=== PATIENT | male | born 1965 | race Caucasian/White ===

== ENCOUNTER 2019-12-11 13:59 | Outpatient (REF) | payer MEDICAID, SELFPAY | END 2019-12-11 14:00 | disposition home or self-care (01) | LOC: HO.LAB 13:59 | PROVIDERS: PCP Internal Medicine; Visit Provider Internal Medicine | DX: Z20.828 Contact with and (suspected) exposure to other viral communicable diseases (principal) | CPT/HCPCS: 87635 ==

== ENCOUNTER → 2020-01-26 09:56 | Outpatient (BNVA) | payer SELFPAY | PROVIDERS: PCP Internal Medicine; Referring Provider Internal Medicine; Visit Provider Physician Assistant | DX: Z76.89 Persons encountering health services in other specified circumstances (principal) ==

== ENCOUNTER 2020-03-31 08:48 | Day surgery (SDC) | payer MEDICAID, SELFPAY ==
--- NOTE | 2020-03-30 08:54 | P.CONAN_ITS ---
Documented by User: Crissy Jung 03/30/20 08:55 HPI - Anesthesia Eval Consult details Narrative: 55yo M for Colonoscopy FOR[facility]LY [facility] Past Medical History Medical History Lab test negative for COVID-19 virus Family History Family History Father Esophageal cancer Mother Cardiac abnormality Social History Social History Household Members: Spouse Alcohol intake: current Smoking Status: Current every day smoker Tobacco Type: Cigarette Cigarettes Per Day: 10 Years Smoked: 25 Smoked in Last 30 Days: Yes Patient Given Instructions on How to Stop Smoking: No Second Hand Smoke Exposure: Yes Use of substances other than those prescribed or required for medical reasons: No Advance Directives: No Advance Directives Information Provided: No Current occupational status: employed Meds Allergies Allergy/AdvReac Type Severity Reaction Status Date / Time No Known Allergies Allergy Verified 03/31/20 09:29 [No Known Allergies*] Exam Exam Date and Time: March 30, 2020 0854 Assessment and Plan Assessment Anesthesia Assessment: Chart Reviewed Documented by User: Odalis lFoyd 03/31/20 10:10 [facility] Past Medical History Medical History Lab test negative for COVID-19 virus Family History Family History Father Esophageal cancer Mother Cardiac abnormality Social History Social History Household Members: Spouse Alcohol intake: current Smoking Status: Current every day smoker Tobacco Type: Cigarette Cigarettes Per Day: 10 Years Smoked: 25 Smoked in Last 30 Days: Yes Patient Given Instructions on How to Stop Smoking: No Second Hand Smoke Exposure: Yes Use of substances other than those prescribed or required for medical reasons: No Advance Directives: No Advance Directives Information Provided: No Current occupational status: employed Meds Allergies Allergy/AdvReac Type Severity Reaction Status Date / Time No Known Allergies Allergy Verified 03/31/20 09:29 [No Known Allergies*] Exam Airway Mallampati Class: II TM Dist: >3cm Neck ROM: Full Heart: RRR Lungs: CTA
[2020-03-31 09:29] VITALS: BP 120/69; PULSE 62; RESP 16; TEMP 36.2; O2SAT 96; BMI 28.3
[2020-03-31] MEDS: Lactated Ringers 1,000 ML 100 ML IVCONT (09:37)
--- NOTE | 2020-03-31 10:37 | MHC.SHP ---
Pre-Procedural Eval Section B Chief Complaint: screening Relevant Family History (Specify if Yes): No Relevant Social History: Tobacco Use Present Medications: None Medical History: No relevant PMH History of Previous Operations: No relevant previous surgery Allergies: Allergies Allergy/AdvReac Type Severity Reaction Status Date / Time No Known Allergies Allergy Verified 03/31/20 09:29 [No Known Allergies*] Review of Systems Sugical H&P ROS: Negative: Constitution, Cardiovascular, Respiratory, Neurological, Psychiatric, Hem-Onc, Allergic/Immunologic, Gastrointestinal, Genitourinary, Musculoskeletal, Integumentary, Endocrine and Eyes/Ears/Nose/Throat Exam Surgical H&P Exam: Normal: HEENT, Normal: Heart, Normal: Lungs, Normal: Extremities, Normal: Abdomen, Normal: Skin and Normal: Neurological Plan Diagnosis/Plan: Unchanged I have reviewed the history and physical and performed a pertinent physical examination on my patient. No changes have occurred unless specified.
--- NOTE | 2020-03-31 10:38 | P.OP_ITS ---
Operative Note Operative Note Date of Service: 03/31/20 Narrative: Operative Information Procedure Description: Colonoscopy COLONOSCOPY Instrument: Olympus variable stiffness pediatric scope 190L Colonoscopy Monitoring: Vital signs and clinical assessment, continuous EKG monitoring, Pulse oximetry, Carbon Dioxide monitoring and blood pressure monitoring were done throughout the procedure. Colon withdrawal time was 12 minutes. Procedure: The patient was placed in the left lateral decubitis position and pre-procedure medications were administered. After a digital rectal examination of the ano-rectum, the video colonoscope was inserted into the rectum and advanced through the colon to the cecum/TI. The colonoscope was slowly withdrawn in a retrograde panoramic fashion and the colon mucosa was carefully examined including a retroflexed view of the rectum. Findings and interventions are described below. Procedure Difficulty:easy Findings: Terminal Ileum-normal Cecum:normal Ascending Colon: 6-7 mm sessile polyp removed with forceps Transverse Colon -normal Descending Colon:normal Sigmoid Colon: x 3 sessile polyps about 10 mm each, x2 removed with cold snare and one with forceps, wide mouthed diverticulosis noted Rectum: Retroflexion with medium sized internal hemorrhoids, grade I Anorectum - normal Colon preparation: [place] Bowel Preparation Scale Right colon; 2 Transverse colon: 2 Left colon; 2 (0 = Unprepared colon segment with mucosa not seen due to solid stool that cannot be cleared. 1 = Portion of mucosa of the colon segment seen, but other areas of the colon segment not well seen due to staining, residual stool and/or opaque liquid. 2 = Minor amount of residual staining, small fragments of stool and/or opaque liquid, but mucosa of colon segment seen well. 3 = Entire mucosa of colon segment seen well with no residual staining, small fragments of stool or opaque liquid) Impression and Post Procedure Diagnosis: polyps internal hemorrhoids diverticular disease Plan: High fiber diet leaflet Avoid straining at stool, epsom salts and sitz bath, anusol supps or cream prn Repeat Colonoscopy in 3-5 years if adenomatous, 10 yr if hyperplastic or earlier if clinically indicated Above findings were reviewed with the patient and relevant handouts were provided if indicated.
--- NOTE | 2020-03-31 10:38 | PM.OP ---
Brief Operative Note Date of Service: 03/31/20 Pre-op diagnosis: colon screening Post-op diagnosis: same Procedure: see op note Surgeon: Richmond Sierra MD Anesthesia: MAC Estimated blood loss (mL): 0 Condition: stable Disposition: PACU
[2020-03-31 11:29] VITALS: BP 87/54; PULSE 67; RESP 16; TEMP 36.4; O2SAT 93
[2020-03-31 11:44] VITALS: BP 100/63; PULSE 63; RESP 18; TEMP 36.5; O2SAT 96
--- NOTE | 2020-03-31 12:47 | HO.POSTANES ---
Post Anesthesia Evaluation Post Anesthesia Evaluation Vital Signs: Vital Signs Temp Pulse Resp BP Pulse Ox 03/31/20 11:44 97.7 F 63 18 100/63 96 03/31/20 11:29 97.5 F 67 16 87/54 L 93 03/31/20 09:29 97.2 F 62 16 120/69 96 Anesthesia: Monitored Mental Status: Awake Pain Control: Satisfactory Nausea/Vomiting: None Hydration: Adequate Anesthesia-Related Issues: No Anes. Related Issues
== END 2020-03-31 12:17 | disposition home or self-care (01) ==
PROVIDERS: PCP Internal Medicine; Visit Provider Internal Medicine Gastroenterology
PROC: 0DJD8ZZ Inspection of Lower Intestinal Tract, Via Natural or Artificial Opening Endoscopic (ICD-10-PCS; CPT 45378; principal; 2020-03-31 10:30)
DX: Z12.11 Encounter for screening for malignant neoplasm of colon (principal); D12.2 Benign neoplasm of ascending colon; K63.5 Polyp of colon; K57.30 Diverticulosis of large intestine without perforation or abscess without bleeding; K64.0 First degree hemorrhoids; F17.210 Nicotine dependence, cigarettes, uncomplicated
CPT/HCPCS: 45385; 45380; 88305

== ENCOUNTER → 2020-04-07 10:34 | Outpatient (BNVA) | payer MEDICAID, SELFPAY | PROVIDERS: PCP Internal Medicine; Visit Provider Physician Assistant ==

== ENCOUNTER 2020-04-18 12:18 | Outpatient (REF) | payer MEDICAID, SELFPAY | END 2020-04-18 12:19 | disposition home or self-care (01) | LOC: HO.LAB 12:18 | PROVIDERS: PCP Internal Medicine; Visit Provider Internal Medicine | DX: Z20.822 Contact with and (suspected) exposure to COVID-19 (principal) | CPT/HCPCS: 36415; C9803; U0003; U0005 ==

== ENCOUNTER 2020-08-15 09:44 | Outpatient (REF) | payer MEDICAID, SELFPAY | END 2020-08-15 09:45 | disposition home or self-care (01) | LOC: HO.LAB 09:44 | PROVIDERS: PCP Internal Medicine; Visit Provider Internal Medicine | DX: Z20.822 Contact with and (suspected) exposure to COVID-19 (principal) | CPT/HCPCS: C9803; U0003; U0005 ==

== ENCOUNTER 2021-02-17 07:28 | Outpatient (REF) | payer MEDICAID, SELFPAY ==
--- NOTE | ~2021-02-17 | XR_ITS ---
EXAMINATION: XR LUMBOSACRAL SPINE CLINICAL INFORMATION: Low back pain COMPARISON: None TECHNIQUE: Three views of the lumbosacral spine. FINDINGS: No acute visible fracture or dislocation. Mild multilevel degenerative changes with disc space narrowing, osteophyte formation, and facet arthropathy. Vertebral body heights and disc spaces are otherwise maintained. Posterior elements are intact. Paraspinal soft tissues are unremarkable. Visualized bowel gas is unremarkable. XR/XR lumbar spine 2-3V IMPRESSION: 1. No acute visible fracture or dislocation. 2. Mild multilevel degenerative changes.
== END 2021-02-17 07:29 | disposition home or self-care (01) ==
LOC: HO.XRAY 07:28
PROVIDERS: PCP Internal Medicine; Visit Provider Internal Medicine
DX: M54.50 Low back pain, unspecified (principal)
CPT/HCPCS: 72100

== ENCOUNTER → 2021-09-08 09:31 | Outpatient (BNVA) | payer MEDICAID, SELFPAY | PROVIDERS: PCP Internal Medicine; Referring Provider Internal Medicine; Visit Provider Internal Medicine Cardiovascular Disease | DX: R01.1 Cardiac murmur, unspecified (principal); R07.89 Other chest pain | CPT/HCPCS: 93005; 99202 ==

== ENCOUNTER → 2021-09-21 07:31 | Outpatient (REF) | payer MEDICAID, SELFPAY ==
--- NOTE | 2021-09-21 07:35 | CA_ITS ---
Transthoracic Echocardiogram Patient (Last, First, Middle): Eugenio Franco, Gender: Male Date of : 1965 Age: 56 Procedure Date: 09/21/2021 Procedure Type: Transthoracic Echocardiogram Location: OP Height: 165.1 cm Weight: 78.02 kg BSA: 1.86 m2 Heart Rate: bpm BP: 115 / 70 mmHg Graphics Coordinator: ELIZABETH Referring MD: Avinash Adams MD Electrician Control Equipment: Avinash Adams MD Symptoms: R01.1 - Cardiac murmur, unspecified Study Quality: Adequate ECG Rhythm: Sinus Conclusions: - 1. Normal LV systolic function grade 1 diastolic dysfunction 2.Calcified aortic valve changes with mild aortic regurgitation and increased gradient suggestive of early aortic stenosis 3. Normal RV systolic pressure 4. No pericardial effusion Findings Left Ventricle Normal left ventricular size, thickness, and systolic function. The visually estimated ejection fraction is between 60-65%. Spectral Doppler is indicative of an impaired relaxation filling pattern. E/E prime ratio is <8, consistent with normal filling pressures. Evidence suggests grade I (mild) diastolic dysfunction. Right Ventricle Normal right ventricular cavity size and systolic function. Atria Both atria are normal in size. There is lipomatous hypertrophy of the interatrial septum. Interatrial shunt cannot be excluded. Aortic Valve There is mild calcification of the aortic valve. There is mild aortic valve regurgitation. Mildly increased gradient across aortic valve suggestive of early aortic stenosis Mitral Valve Likely normal mitral valve structure and function. There is trace mitral valve regurgitation. There is no mitral valve stenosis. Pulmonic Valve The pulmonic valve is likely normal. Tricuspid Valve Normal tricuspid valve structure. There is mild tricuspid valve regurgitation. The right ventricular systolic pressure is normal. The right ventricular systolic pressure is 25 mmHg. Normal right atrial pressure. There is no evidence of pulmonary hypertension. Great Vessels All visible segments of the aorta are normal in size. The pulmonary artery was not well visualized. Venous The inferior vena cava is normal in size and collapses greater than 50% with inspiration. Pericardium/Pleural There is no evidence of pericardial effusion. Prior Study Comparison No prior study available for comparison. Measurements 2D Linear Measurements IVSd: 0.98 0.6-0.9/0.6-1.0 cm LVIDd: 4.31 3.9-5.3/4.2-5.9 cm LVIDd Index: 2.32 2.4-3.2/2.2-3.1 cm/m2 LVIDs: 3.03 2.0-3.6 cm LVPWd: 0.96 0.7-1.1 cm LA Diam: 3.20 2.7-3.8/3.0-4.0 cm LAIDs Index: 1.72 1.5-2.3 cm/m2 LV Mass: 170.88 67-162/88-224 g LV Mass Index: 91.87 43-95/49-115 g/m2 LVOT Diam: 2.00 3.0+(-)1.3 cm 2D Systolic Function EF 4C: 57.70 >55% EF 2C: 60.10 >55% Mitral Valve MV Pk E: 0.79 MV PK A: 0.73 MV Decel Time: 255.00 E/A: 1.10 E'Lateral: 11.50 E'Medial: 6.85 E/E' Med: 11.50 E/E' Lat: 6.90 PHT: 75.00 MVA PHT: 2.93 Decel Mora: 3.09 Aortic Valve AoV Pk Corby: 1.90 AoV Mn Corby: 1.30 AoV VTI: 0.45 AoV Pk Grad: 14.00 Aov Mn Grad: 8.00 FERNANDA Cont.VTI: 2.22 AI Pk Corby: 4.03 AI Mora: 1.83 LVOT LVOT Pk Corby: 1.38 LVOT Mn Corby: 0.85 LVOT VTI: 0.32 LVOT Pk Grad: 8.00 LVOT Mn Grad: 3.00 LVOT Diam: 2.00 LVOT Area: 3.14 Diastolic Function MV Pk E: 0.79 MV Pk A: 0.73 E/A: 1.10 E'Medial: 6.85 E/E' Med: 11.50 E' Laterial: 11.50 E/E' Lat: 6.90 Right Ventricle TAPSE (mm): 22.60 TVS' Corby: 9.03 Tricuspid Valve TR Pk Corby: 2.35 TR Pk Grad: 22.00 RA Press: 3.00 RVSP: 25.00 Great Vessels Aorta Sinus of Valsalva: 3.05 2.0-3.[address] [place]: 2.62 1.7-3.4 cm Ao Asc: 2.90 2.1-3.4 cm Updated in Other Vendor System with Status of Final Avinash Adams MD electronically signed on 09/21/2021 12:22:23 PM with status of Final
--- NOTE | 2021-09-21 07:35 | CA_ITS ---
Acquisition Time: 2021-09-21 08:58:41 Total Exercise Time: 00:09:14 Test Indications: CP Medications: SEE CHART Protocol: ROSEY Max HR: 160 BPM 98% of Pred: 162 BPM Max BP: 174/080 mmHG Max Work Load: 10.4 METS Exercise stress test with exercise 9 min 14 sec of Rosey protocol, without anginal symptoms, with one ventricular cuplet during exercise, with normotensive responose to exercise, with EKG changes meeting criteria for ischemia: downsloping ST depression lead III, khorizontal aVF, V6 then in recovery with downsloping ST segements leads III, aVF, V5, V6 with gradual improvement. Test reviewed with Dr Luz. Will order a stress echo for further evaluation. Referred By: Avinash Adams Overread By: JAVIER KIDD
== END ==
LOC: HO.CARD 07:31
PROVIDERS: Visit Provider Internal Medicine Cardiovascular Disease
DX: R01.1 Cardiac murmur, unspecified (principal); R07.89 Other chest pain
CPT/HCPCS: 93017; 93306

== ENCOUNTER → 2021-09-28 11:00 | Outpatient (REF) | payer MEDICAID, SELFPAY ==
--- NOTE | 2021-09-28 11:03 | CA_ITS ---
Acquisition Time: 2021-09-28 11:21:01 Total Exercise Time: 00:09:15 Test Indications: Abnormal Treadmill Test Medications: NONE Protocol: ROSEY Max HR: 162 BPM 100% of Pred: 162 BPM Max BP: 138/080 mmHG Max Work Load: 10.5 METS Exercise stress test with exercise 9 min 15 sec of Rosey protocol, achieving 100% MPHR, withut anginal symptoms, with isolated PVCs and one ventricular triplet in stage 3, with normotensive response to exercise, without EKG changes meeting criteria for ischemia, with downsloping ST lead III only. Echo images obtained by [facility] at rest and immediately post peak exercise. Definity contrast used. Test reviewed with Dr Rand. Referred By: Cordelia Franco Overread By: CORDELIA FRANCO
== END ==
LOC: HO.CARD 11:00
PROVIDERS: Visit Provider Internal Medicine
DX: R94.39 Abnormal result of other cardiovascular function study (principal)
CPT/HCPCS: 93350; Q9957

== ENCOUNTER → 2021-11-09 09:59 | Outpatient (BNVA) | payer MEDICAID, SELFPAY | PROVIDERS: PCP Internal Medicine; Referring Provider Internal Medicine; Visit Provider Internal Medicine Cardiovascular Disease | DX: I25.10 Atherosclerotic heart disease of native coronary artery without angina pectoris (principal); I35.0 Nonrheumatic aortic (valve) stenosis | CPT/HCPCS: 99212 ==

== ENCOUNTER 2022-05-06 10:40 | Emergency (ER) | payer MEDICAID, SELFPAY ==
[2022-05-06 10:44] VITALS: BP 142/79; PULSE 74; RESP 18; TEMP 36.6; O2SAT 98; BMI 29.5
[2022-05-06 11:41] LABS: Influenza A PCR NEGATIVE (Negative); Influenza B PCR NEGATIVE (Negative); Resp Syncy Virus RNA Qual PCR NEGATIVE (Negative); SARS COV2 PCR INHOUSE POSITIVE (Negative)
--- NOTE | 2022-05-06 12:17 | ED_ITS ---
HPI - General Adult General Chief complaint: General Medical <Tammy Palma NP - Last Filed: 05/06/22 12:17> Stated complaint: headache, covid symptoms <Tammy Palma NP - Last Filed: 05/06/22 12:17> Time Seen by Provider: 05/06/22 12:30 <Tammy Palma NP - Last Filed: 05/06/22 12:17> Source: patient <Ayanna Mackey MD - Last Filed: 05/06/22 13:28> Mode of arrival: ambulatory <Ayanna Mackey MD - Last Filed: 05/06/22 13:28> Limitations: no limitations <Ayanna Mackey MD - Last Filed: 05/06/22 13:28> History of Present Illness HPI narrative: 57-year-old male came in for evaluation of headache. Patient was contacted with sick contact now is feeling headache but no sore throat, no sneezing, no coughing patient is here to check for his COVID status after his recent exposure to a sick contact. <Ayanna Mackey MD - Last Filed: 05/06/22 13:28> Related Data Home medications: Previous Rx's Medication Instructions Recorded aspirin 81 mg tablet,delayed 81 mg PO DAILY #90 tabs 11/09/21 release (Ecotrin Low Strength) <Tammy Palma NP - Last Filed: 05/06/22 12:17> Allergies/adverse reactions: Allergies Allergy/AdvReac Type Severity Reaction Status Date / Time No Known Allergies Allergy Verified 04/07/20 10:34 [No Known Allergies*] <Tammy Palma NP - Last Filed: 05/06/22 12:17> Review of Systems Review of Systems: All other systems are reviewed and are negative Constitutional: Reports as per HPI and Reports no additional constitutional complaints Eyes: Reports as per HPI and Reports no additional eye complaints Reports system reviewed and no additional complaints, except as documented Cardiovascular: Reports as per HPI and Reports no additional cardiovascular complaints Respiratory: Reports as per HPI and Reports no additional respiratory complaints Gastrointestinal: Reports as per HPI and Reports no additional gastrointestinal complaints Genitourinary: Reports no additional female genitourinary complaints Musculoskeletal: Reports no additional musculoskeletal complaints Skin/Breast: Reports system reviewed and no additional complaints, except as docu Psychiatric: Reports no additional psychiatric complaints Endocrine: Reports no additional endocrine complaints Hematologic/Lymphatic: Reports no additional hematologic/lymphatic complaints Allergic/Immunologic: Reports no additional allergic/immunologic complaints Reports system reviewed and no additional complaints, except as documented and Reports Abnormal speech present <Ayanna Mackey MD - Last Filed: 05/06/22 13:28> [facility] Past Medical History Medical History: Medical History Lab test negative for COVID-19 virus <Tammy Palma NP - Last Filed: 05/06/22 12:17> Surgical History: Surgical History H/O colonoscopy <Tammy Palma NP - Last Filed: 05/06/22 12:17> Family History Family History: Family History Father Esophageal cancer Mother Cardiac abnormality <Tammy Palma NP - Last Filed: 05/06/22 12:17> Social History Social History: Social History Household Members: Spouse Alcohol intake: current Alcohol intake frequency: a few times a month Alcohol type: beer Patient Tobacco Use Status: Former Tobacco user Quit Date: 2020 Cigarettes Per Day: 10 Years Smoked: 25 +/- Advance Directives: No Advance Directives Information Provided: No Current occupational status: employed <Tammy Palma NP - Last Filed: 05/06/22 12:17> Physical Exam ED Vital Signs: Vital Signs - 24 hr 05/06/22 10:44 Temperature 98 F Pulse Rate 74 Respiratory Rate 18 Blood Pressure 142/79 H Pulse Oximetry 98 Oxygen Delivery Method Room Air BMI result Body Mass Index 29.5 <Tammy Palma NP - Last Filed: 05/06/22 12:17> Vital Signs - 24 hr 05/06/22 10:44 Temperature 98 F Pulse Rate 74 Respiratory Rate 18 Blood Pressure 142/79 H Pulse Oximetry 98 Oxygen Delivery Method Room Air BMI result Body Mass Index 29.5 Vital signs have been reviewed as appeared to be correct. Blood pressure normal. Heart rate normal. Respiration rate normal. Temperature normal. Oxygen saturation normal. <Ayanna Mackey MD - Last Filed: 05/06/22 13:28> Appearance: Alert. Oriented X3. No acute distress. Head: Normal external exam. Normocephalic. Atraumatic. No Gómez signs noted. No raccoon eyes noted Eyes: PERRLA. EOMI. Conjunctiva and sclera normal. Eyelids normal. ENT: TM's Normal. Pharynx normal. Uvula midline. Moist mucous membranes. No trismus noted. No drooling noted. No muffled voice noted. Neck: Normal inspection. Neck supple. FROM. No adenopathy. Thyroid Normal. No meningeal signs. No neck mass noted. CVS: Normal heart rate and rhythm. Heart sound normal. No murmurs noted. Pulses normal throughout. Respiratory: No respiratory distress. Painless inspiration. Breath sounds normal. No wheezes/rales/rhonchi noted. Chest nontender. No accessory muscle usage noted or decreased air movement noted. Abdomen: Soft and nontender. Bowel sounds normal in all 4 quadrants. No distention noted. No organomegaly noted. No visible injury noted. Back: No CVA tenderness. Full range of motion noted. Skin: Skin warm and dry. Normal skin color. Normal skin turgor. No rashes/lesions/lacerations noted. Extremities: No lower extremity edema. Extremities exhibit normal range of motion. Extremities nontender. Neuro: Oriented X 3. Cranial nerve exam: II-XII are grossly intact No motor deficit. No sensory deficit. Reflexes normal. <Ayanna Mackey MD - Last Filed: 05/06/22 13:28> Course Course Course Narrative: This is a rapid medical exam. 57 yo male exposed to COVID yesterday. Now with cough. No other symptoms. Will send covid testing. VSS <Tammy Palma NP - Last Filed: 05/06/22 12:17> Medical Decision Making Differential Diagnosis Differential Diagnoses: The differential diagnosis associated with the presentation includes (COVID infection, influenza infection, sinus infection.) <Ayanna Mackey MD - Last Filed: 05/06/22 13:28> Lab Data MDM Lab Attestation statement: I reviewed the patient's lab results. <Ayanna Mackey MD - Last Filed: 05/06/22 13:28> Labs: Lab Results 05/06/22 Range/Units 11:01 Influenza Type A (PCR) NEGATIVE (Negative) Influenza Type B (PCR) NEGATIVE (Negative) RSV RNA Qual (PCR) NEGATIVE (Negative) SARS-CoV-2 RNA (RT-PCR) POSITIVE A (Negative) <Tammy Palma NP - Last Filed: 05/06/22 12:17> Lab Results 05/06/22 Range/Units 11:01 Influenza Type A (PCR) NEGATIVE (Negative) Influenza Type B (PCR) NEGATIVE (Negative) RSV RNA Qual (PCR) NEGATIVE (Negative) SARS-CoV-2 RNA (RT-PCR) POSITIVE A (Negative) <Ayanna Mackey MD - Last Filed: 05/06/22 13:28> Discharge Plan Discharge Clinical Impression: COVID-19 virus infection <Tammy Palma NP - Last Filed: 05/06/22 12:17> Patient Disposition: Home, Self-Care <Tammy Palma NP - Last Filed: 05/06/22 12:17> Instructions: Covid-19 Viral Syndrome and Novel Coronavirus (ED) Hey/Ath <Tammy Palma NP - Last Filed: 05/06/22 12:17> Additional Instructions: Self-quarantine for 7 days, frequent hand washing, where face mask at all times, keep social distancing. <Tammy Palma NP - Last Filed: 05/06/22 12:17> Prescriptions: No Action aspirin [Ecotrin Low Strength] 81 mg tablet,delayed release (DR/EC) 81 mg PO DAILY Qty: 90 3RF <Tammy Palma NP - Last Filed: 05/06/22 12:17> Referrals: Clem White MD [Primary Care Provider] - <Tammy Palma NP - Last Filed: 05/06/22 12:17>
[2022-05-06 13:35] VITALS: BP 128/79; PULSE 67; RESP 16; O2SAT 97
== END 2022-05-06 13:38 | disposition home or self-care (01) ==
PROVIDERS: Emergency Provider Emergency Medicine; PCP Internal Medicine
DX: U07.1 COVID-19 (principal); R51.9 Headache, unspecified; R05.9 Cough, unspecified; Z87.891 Personal history of nicotine dependence
CPT/HCPCS: 0241U; 99283

== ENCOUNTER → 2022-05-09 09:01 | Outpatient (BNVA) | payer MEDICAID, SELFPAY | PROVIDERS: PCP Internal Medicine; Visit Provider Orthopaedic Surgery | DX: Z13.89 Encounter for screening for other disorder (principal) ==

== ENCOUNTER 2022-05-11 09:53 | Outpatient (REF) | payer MEDICAID, SELFPAY ==
[2022-05-11 10:35] LABS: COVID-19 Test Negative (Negative); IDNOW Serial# BCCEAD1C
== END 2022-05-11 09:54 | disposition home or self-care (01) ==
LOC: HO.LAB 09:53
PROVIDERS: Visit Provider Internal Medicine
DX: Z20.822 Contact with and (suspected) exposure to COVID-19 (principal)
CPT/HCPCS: 87635; C9803

== ENCOUNTER → 2022-06-06 08:38 | Outpatient (BNVA) | payer MEDICAID, SELFPAY | PROVIDERS: PCP Internal Medicine; Visit Provider Orthopaedic Surgery | DX: M25.641 Stiffness of right hand, not elsewhere classified (principal); R20.0 Anesthesia of skin | CPT/HCPCS: 99202 ==

== ENCOUNTER → 2022-11-23 07:52 | Outpatient (REF) | payer MEDICAID, SELFPAY ==
--- NOTE | 2022-11-23 07:54 | CA_ITS ---
Transthoracic Echocardiogram Patient (Last, First, Middle): Eugenio rFanco, Gender: Male Date of : 1965 Age: 57 Procedure Date: 11/23/2022 Procedure Type: Transthoracic Echocardiogram Location: OP Height: 165.1 cm Weight: 77.11 kg BSA: 1.85 m2 Heart Rate: 70 bpm BP: 120 / 70 mmHg Yard Stocker: LENO Referring MD: Avinash Adams MD Symptoms: I35.0 - Nonrheumatic aortic (valve) stenosis Study Quality: Adequate ECG Rhythm: Sinus Conclusions: - Normal left ventricular size, thickness, systolic function, and wall motion. The visually estimated ejection fraction is between 55-60%. - E/E prime ratio is between 8 and 15 consistent with indeterminate filling pressures. - There is mild aortic valve regurgitation. - Mildly elevated gradient across aortic valve due to aortic insufficiency- 2D imaging of the valve is normal. Findings Left Ventricle Normal left ventricular size, thickness, systolic function, and wall motion. The visually estimated ejection fraction is between 55-60%. Abnormal diastolic function is noted. Spectral Doppler is indicative of an impaired relaxation filling pattern. E/E prime ratio is between 8 and 15 consistent with indeterminate filling pressures. Right Ventricle Normal right ventricular cavity size and systolic function. Atria The left atrium is normal in size. The right atrium is normal in size. Aortic Valve There is a normal trileaflet aortic valve. There is mild aortic valve regurgitation. Mildly elevated gradient across aortic valve due to aortic insufficiency- 2D imaging of the valve is normal. Mitral Valve Normal mitral valve structure and function. There is no mitral valve regurgitation. There is no mitral valve stenosis. Pulmonic Valve Normal pulmonic valve structure and function. There is trace pulmonic valve regurgitation. Tricuspid Valve Normal tricuspid valve structure and function. There is no tricuspid valve regurgitation. Normal right atrial pressure. There is no evidence of pulmonary hypertension. Great Vessels All visible segments of the aorta are normal in size. Venous The inferior vena cava is normal in size and collapses greater than 50% with inspiration. Pericardium/Pleural There is no evidence of pericardial effusion. Prior Study Comparison No significant change compared to prior study dated: 09/21/2021. Measurements 2D Linear Measurements IVSd: 1.00 0.6-0.9/0.6-1.0 cm LVIDd: 4.80 3.9-5.3/4.2-5.9 cm LVIDd Index: 2.59 2.4-3.2/2.2-3.1 cm/m2 LVIDs: 3.40 2.0-3.6 cm LVPWd: 0.80 0.7-1.1 cm Ao Root: 2.90 2.1-3.5 cm LA Diam: 3.60 2.7-3.8/3.0-4.0 cm LAIDs Index: 1.95 1.5-2.3 cm/m2 LV Mass: 183.98 67-162/88-224 g LV Mass Index: 99.45 43-95/49-115 g/m2 LVOT Diam: 2.00 3.0+(-)1.3 cm 2D Systolic Function EF 2C: 62.50 >55% Mitral Valve MV Pk E: 0.58 MV PK A: 0.57 MV Decel Time: 194.00 E/A: 1.00 E'Lateral: 7.29 E'Medial: 5.22 E/E' Med: 11.10 E/E' Lat: 7.90 PHT: 57.00 MVA PHT: 3.86 Decel [place]: 2.98 Aortic Valve AoV Pk Corby: 2.12 AoV Mn Corby: 1.49 AoV VTI: 0.44 AoV Pk Grad: 18.00 Aov Mn Grad: 10.00 FERNANDA Cont.VTI: 1.82 AI Pk Corby: 4.11 AI [place]: 1.85 LVOT LVOT Pk Corby: 1.34 LVOT Mn Corby: 0.91 LVOT VTI: 0.26 LVOT Pk Grad: 7.00 LVOT Mn Grad: 4.00 LVOT Diam: 2.00 LVOT Area: 3.14 Diastolic Function MV Pk E: 0.58 MV Pk A: 0.57 E/A: 1.00 E'Medial: 5.22 E/E' Med: 11.10 E' Laterial: 7.29 E/E' Lat: 7.90 Right Ventricle TAPSE (mm): 15.50 TVS' Corby: 9.79 Tricuspid Valve TR Pk Corby: 1.97 TR Pk Grad: 16.00 RA Press: 8.00 RVSP: 24.00 Great Vessels Aorta Ao Root-2D: 2.90 2.0-3.7 cm Sinus of Valsalva: 2.90 2.0-3.5 cm Ao Asc: 3.10 2.1-3.4 cm Pulmonary Veins Pulm Vein S/D 1.10 Pulmonary Valve PV Pk Corby: 0.89 Peak PV Grad: 3.00 Updated in Other Vendor System with Status of Final Vikram Luz MD electronically signed on 11/26/2022 9:06:35 AM with status of Final
== END ==
LOC: HO.CARD 07:52
PROVIDERS: PCP Internal Medicine; Visit Provider Internal Medicine Cardiovascular Disease
DX: I35.0 Nonrheumatic aortic (valve) stenosis (principal)
CPT/HCPCS: 93306

== ENCOUNTER → 2022-11-23 07:54 | Outpatient (BNV) | payer MEDICAID, SELFPAY | PROVIDERS: PCP Internal Medicine; Visit Provider Internal Medicine Cardiovascular Disease | DX: I35.1 Nonrheumatic aortic (valve) insufficiency (principal) | CPT/HCPCS: 93306 ==

== ENCOUNTER 2022-11-27 14:57 | Outpatient (AMB) | payer MEDICAID, SELFPAY ==
--- NOTE | 2022-11-27 15:04 | A.OFFVIS_ITS ---
Intake Vital Signs 11/27/22 15:05 Height 5 ft 4 in Weight 178 lb 9.191 oz BMI 30.6 BP 124/70 Blood Pressure Location Lt brachial Position Sitting Pulse 80 Intake Visit Reasons: 1 year follow up Intake Note: 1 year follow-up with ekg feeling good Referral And Information Aide Required: Yes Referral And Information Aide Name: ben garcia Allergies No Known Allergies [No Known Allergies*] Allergy (Verified 06/06/22 09:05) Medication List - Last Reconciled 11/27/22 by Avinash Adams MD diclofenac potassium 50 mg PO TID PRN HPI HPI Comments History of Present Illness Details Eugenio comes for follow-up. History was obtained with help of a certified retail field supervisor. Patient denies any clear cardiac symptoms. Remains very active. Recent echocardiogram shows increased gradient across aortic valve which would suggest mild early aortic stenosis with mild aortic regurgitation. He has no cardiac symptoms. 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 Review of Systems Const Denies chills, Denies fatigue, Denies fever(s), Denies frequent falls, Denies weakness, Denies weight gain and Denies weight loss ENT Denies dizziness Card Denies chest pain, Denies leg edema, Denies lightheadedness, Denies palpitations, Denies dyspnea, Denies dyspnea on exertion, Denies orthopnea and Denies other (loss of consciousness) Resp Denies cough, Denies dyspnea and Denies dyspnea on exertion GI Denies hematochezia and Denies change in stool character Musc Denies abnormal gait, Denies muscle weakness, Denies numbness, Denies radiating pain into limb and Denies tingling Neuro Denies Abnormal speech present, Denies abnormal gait, Denies dizziness, Denies frequent falls, Denies numbness, Denies tingling and Denies weakness Endo Denies fatigue and Denies palpitations Physical Exam Vital Signs: Last Vital Signs Pulse 80 11/27/22 15:05 BP 124/70 11/27/22 15:05 BMI result Body Mass Index 30.6 Const General: cooperative, comfortable, no acute distress, alert and awake Nutritional Appearance: overweight Orientation/consciousness: patient oriented x3 Limitations: no limitations Neck Neck: Yes trachea midline, Yes supple and Yes no JVD Carotids: normal carotid upstroke Resp Effort & Inspection: normal respiratory effort Auscultation: clear to auscultation bilaterally Cardio Jugular venous distension: no JVD Palpation: normal PMI Rate: regular rate Rhythm: regular rhythm Heart sounds: S1 normal heart sound present, S2 normal heart sound present, no click, no gallops, Murmur heart sound present systolic early, decrescendo, crescendo and with radiation to the carotids and no rubs GI Auscultation: normal bowel sounds Neuro General: patient oriented x3 and no focal motor deficits Speech: No Abnormal speech present Extrem General: Yes no clubbing, cyanosis or edema Office Procedures EKG Details: EKG shows normal sinus rhythm with isolated Q-wave in lead 3 most likely due to body habitus. [id number], Complete Assessment & Plan Assessment & Plan (1) Aortic stenosis: Code(s): I35.0 - Nonrheumatic aortic (valve) stenosis Plan: Mild early aortic stenosis. Also present mild aortic regurgitation consistent him and causing systolic murmur. No interventions required. This was explained to him with help of hose finisher. Advise low-dose aspirin therapy. Follow-up echocardiogram every 2 years. Will follow up in clinic in 2 years time, sooner p.r.n.. Thank you for me to partake in his care Coding Level of Care Code Est Pt Level 3 (75046) Diagnoses Aortic stenosis I35.0 CPT Codes EKG - CPT: 03238-[id number], Complete ([id number])
[2022-11-27 15:05] VITALS: BP 124/70; PULSE 80; BMI 30.6
== END 2022-11-27 16:07 | disposition home or self-care (01) ==
PROVIDERS: PCP Internal Medicine; Visit Provider Internal Medicine Cardiovascular Disease
DX: I35.0 Nonrheumatic aortic (valve) stenosis (principal)
CPT/HCPCS: 93010; 99213

== ENCOUNTER → 2022-11-27 14:57 | Outpatient (BNVA) | payer MEDICAID, SELFPAY | PROVIDERS: PCP Internal Medicine; Visit Provider Internal Medicine Cardiovascular Disease | DX: I35.0 Nonrheumatic aortic (valve) stenosis (principal) | CPT/HCPCS: 93005; 99212 ==

== ENCOUNTER 2023-11-01 08:53 | Outpatient (REF) | payer MEDICAID, SELFPAY ==
[2023-11-07 20:09] LABS: Testosterone, Free 92.9 pg/mL (35.0-155.0); Testosterone, Total 673 ng/dL (250-1100)
== END 2023-11-01 08:54 | disposition home or self-care (01) ==
LOC: HO.CHCLDS 08:53
PROVIDERS: Visit Provider Internal Medicine
DX: R68.82 Decreased libido (principal)
CPT/HCPCS: 36415; 84402; 84403

== ENCOUNTER 2024-01-03 06:55 | Outpatient (REF) | payer MEDICAID, SELFPAY ==
[2024-01-03 07:03] LABS: MANUAL DIFF FLAG NO
[2024-01-03 07:17] LABS: Basophils Absolute Auto 0.1 X10*3/uL (0.0-0.2); Basophils Percent Auto 0.6 % (0-2); Eosinophils Absolute Auto 0.1 X10*3/uL (0.0-0.4); Eosinophils Percent Auto 1.7 % (0-4); Hematocrit 44.8 % (42.0-52.0); Hemoglobin 15.2 g/dl (14.0-18.0); Imm Gran Abs Auto 0.06 X10*3/uL (0.00-0.03); Imm Gran Pct Auto 0.7 % (0.0-0.4); Lymphocytes Absolute Auto 2.3 X10*3/uL (1.2-4.9); Lymphocytes Percent Auto 27.4 % (20-40); Mean Corpuscular HGB Conc 33.9 g/dl (31.0-36.0); Mean Corpuscular Hemoglobin 29.6 pg (27.0-33.0); Mean Corpuscular Volume 87.3 fL (80.0-98.0); Mean Platelet Volume 9.9 fL (9.4-12.4); Monocytes Absolute Auto 0.8 X10*3/uL (0.1-1.2); Monocytes Percent Auto 9.9 % (2-11); Neutrophils Percent Auto 59.7 % (45-73); Platelet Count 179 X10*3/uL (160-400); Red Blood Count 5.13 X10*6/uL (4.60-5.80); Red Cell Distribution Width 12.7 % (11.0-16.0); White Blood Count 8.3 X10*3/uL (4.8-10.8)
[2024-01-03 07:24] LABS: Estimated Average Glucose 108 mg/dL; Hemoglobin A1C 142.8747 umol/L; Hemoglobin A1c % 5.4 % (<6.0); Total Hemoglobin (HGBA1C) 3966.6443 umol/L
[2024-01-03 07:52] LABS: Alanine Aminotransferase 33 U/L (0-40); Albumin Level 4.2 g/dL (3.5-5.0); Anion Gap 11 (12-20); Aspartate Amino Transferase 28 U/L (5-37); Bilirubin Total 0.4 mg/dL (0.0-1.0); Blood Urea Nitrogen 24 mg/dL (9-16); Calcium 9.1 mg/dL (8.4-10.2); Carbon Dioxide 27 mmol/L (22-29); Chloride 107 mmol/L (96-108); Cholesterol 137 mg/dL (<200); Estimated Glomerular Filt Rate > 60; Glucose Random 90 mg/dL (60-115); HDL Cholesterol 32 mg/dL (>40); LDL Cholesterol Calculated 87 mg/dL (<100); Potassium 4.2 mmol/L (3.3-5.1); Sodium 141 mmol/L (135-145); Total Protein 7.1 g/dL (6.5-8.0); Triglycerides 90 mg/dL (<150)
[2024-01-03 08:05] LABS: Alkaline Phosphatase 68 U/L (39-117)
[2024-01-03 08:14] LABS: TSH reflex Free T4 1.28 uIU/mL (0.32-4.0)
== END 2024-01-03 06:56 | disposition home or self-care (01) ==
LOC: HO.LAB 06:55
PROVIDERS: PCP Internal Medicine; Visit Provider Internal Medicine
DX: E66.9 Obesity, unspecified (principal)
CPT/HCPCS: 36415; 80053; 80061; 83036; 84443; 85025

== ENCOUNTER 2024-02-14 10:52 | Outpatient (AMB) | payer MEDICAID, SELFPAY ==
--- NOTE | 2024-02-14 07:49 | A.OFFVIS_ITS ---
Intake Visit Reasons: Former Smoker Allergies No Known Allergies [No Known Allergies*] Allergy (Verified 06/06/22 09:05) HPI HPI Former Smoker: Details: Initial visit for this 58yo former smoker with a 20PYH. Patient started smoking at age 28 for 27 years at mhv8jod. min 1/4ppd. He quit 3 years ago in 2020 . Denies marijuana use. Denies second hand smoke exposure. Denies exposure to chemicals or substances like asbestos. . Denies known family history of lung cancer. Denies personal history of cancers. Denies chest CT in last year. . Denies recent travel outside the [place]. Denies recent respiratory illness or recent hospitalization for respiratory issues. Reports testing positive for COVID. Admits receiving COVID Vaccine. . Denies fever, chills, new/worsening cough, hemoptysis, hoarseness or dysphagia. Denies significant chest pain, significant dyspnea or unintentional weight loss. Patient Lung Cancer Screening Questionnaire reviewed with patient by provider. . Shared Decision Making Completed. Patient meets criteria. Discussed in detail with patient, the risk vs benefit of LDCT screening. Patient consents to proceed with scan. Discussed and encouraged continued smoking cessation. [facility] Medical History (Updated 02/14/24 @ 11:09 by Georgia Gutierrez PA-C) Aortic stenosis Tubular adenoma Personal history of nicotine dependence Surgical History (Updated 08/05/23 @ 09:50 by Georgia Gutierrez PA-C) History of colonoscopy Family History Father Esophageal cancer Mother Cardiac abnormality Social History (Updated 02/14/24 @ 11:09 by Georgia Gutierrez PA-C) Household Members: Spouse Alcohol intake: current Alcohol intake frequency: a few times a month Alcohol type: beer Patient Tobacco Use Status: Former Tobacco user Years Smoked: 20pyh, quit 2020 Current occupational status: employed 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 - Patient meets criteria for LDCT for lung cancer screening purposes and is asymptomatic. - Smoking cessation counseling offered. Patients can always call [phone]. - Will arrange for a LDCT scan of the chest for screening purposes at [facility] [place]. - Risks, benefits, and alternatives were discussed in detail and the patient agrees to proceed. - Risks discussed include but are not limited to: radiation exposure, anxiety during testing and while awaiting results, false negatives, false positives and possibility of additional intervention such as further imaging or surgical procedures for benign disease. - Benefits are obviously detection of lung cancer at an early stage which can lead to improved outcomes. - Discussed the importance of screening program compliance with adherence to yearly LDCT scan as scheduled - or sooner interval scans for personalized screening regimen. - Discussed follow up plan. Our office will send a letter discussing results and if needed set up phone call and office visit based on CT findings. - Patient educated on results categorization and the management decisions for suspicious findings potentially found on the screening LDCT scan. Any patient with a Lung RADS score of 3 or 4 will be reviewed by a multidisciplinary team at [facility] [place] to form a plan of action in regards to scan findings. - If further work up is warranted for a suspicious lung finding this will be followed by the Lung Cancer Screening program in conjunction with the Thoracic Surgery Department at [facility] [place]. - A copy of the office note and LDCT will be sent to the patient's PCP - as well as documentation on any associated further plans of care. - Incidental findings on LDCT are the PCP's responsibility. These findings are indicated with an S finding on the LDCT Assessment. A note discussing the findings will be sent to the PCP who is then responsible for further management. - All questions answered.? Coding Level of Care Code Lung Cancer Screening G0296 Diagnoses Personal history of nicotine dependence Z87.891
== END 2024-02-14 11:17 | disposition home or self-care (01) ==
PROVIDERS: PCP Internal Medicine; Visit Provider Physician Assistant Medical
DX: Z87.891 Personal history of nicotine dependence (principal)
CPT/HCPCS: G0296

== ENCOUNTER 2024-02-14 11:05 | Outpatient (REF) | payer MEDICAID, SELFPAY | END 2024-02-14 11:06 | disposition home or self-care (01) | LOC: HO.CT 11:05 | PROVIDERS: PCP Internal Medicine; Visit Provider Physician Assistant Medical | DX: Z12.2 Encounter for screening for malignant neoplasm of respiratory organs (principal); Z87.891 Personal history of nicotine dependence | CPT/HCPCS: 71271; G0296 ==

== ENCOUNTER → 2024-02-14 11:07 | Outpatient (BNV) | payer MEDICAID, SELFPAY | PROVIDERS: PCP Internal Medicine; Visit Provider Radiology Diagnostic Radiology | DX: Z87.891 Personal history of nicotine dependence (principal) | CPT/HCPCS: 71271 ==

== ENCOUNTER 2024-09-30 16:46 | Emergency (ER) | payer MEDICAID, SELFPAY ==
--- NOTE | ~2024-09-30 | XR_ITS ---
CLINICAL HISTORY: pain, constipation 1 view abdomen Comparison: None Findings: Normal bowel gas pattern. Normal stool quantity. No abnormal calcifications. No obvious pneumoperitoneum or pneumatosis. No acute fractures Impression: Normal bowel gas pattern This document has been electronically signed by: Maximino Engel MD on 09/30/2024 20:28:53
[2024-09-30 17:17] VITALS: BP 131/76; PULSE 82; RESP 16; TEMP 36.4; O2SAT 98; BMI 29.3
--- NOTE | 2024-09-30 17:17 | ED.GENADULT ---
HPI - General Adult General Chief complaint: Nausea/Vomiting/Diarrhea Stated complaint: abd pain, diarrhea Time Seen by Provider: 09/30/24 19:29 Source: patient Limitations: language barrier History of Present Illness ED Provider: Demetrice Hart PA-C HPI narrative: 59 year-old male with pmhx of hemorrhoids, constipation, and aortic stenosis who presents to the ED with concern of diarrhea x 2 days. Patient had 2 episodes of loose stool. Pt reports his stools are typically hard due to his constipation. He reports bright red blood in his stool. The blood was on the toilet paper after he wiped, this is happened in the past secondary to his hemorrhoids. Pain within left lower quadrant, is intermittent comes and goes, is symptom-free at this time. Denies nausea/vomiting, fever. Related Data Home Medications ?Medication ?Instructions ?Recorded ?Confirmed diclofenac potassium 50 mg tablet 50 mg PO TID PRN 05/09/22 11/27/22 Previous Rx's ?Medication ?Instructions ?Recorded docusate sodium 100 mg capsule 100 mg PO BID #60 caps 09/30/24 (Colace) polyethylene glycol 3350 17 17 g PO BID #238 grams 09/30/24 gram/dose oral powder (Miralax) Allergies Allergy/AdvReac Type Severity Reaction Status Date / Time No Known Allergies (No Known Allergy Verified 09/30/24 17:20 Allergies*) Review of Systems Review of Systems: Yes all other systems are reviewed and are negative Constitutional: Constitutional: Denies fatigue and Denies fever(s) Cardiovascular: Cardiovascular: Denies chest pain and Denies dyspnea Respiratory: Respiratory: Denies cough and Denies dyspnea Gastrointestinal: Gastrointestinal: Reports abdominal pain, Reports hematochezia, Reports constipation, Reports diarrhea, Denies nausea and Denies vomiting Musculoskeletal: Musculoskeletal: Denies back pain Endocrine: Endocrine: Denies fatigue PMFSH Past Medical History Attestation statement: The following information was validated with the patient. Medical History (Updated 09/30/24 @ 21:35 by BRANDEN Mayorga) Aortic stenosis Tubular adenoma Personal history of nicotine dependence Surgical History (Updated 08/05/23 @ 09:50 by Georgia Gutierrez PA-C) History of colonoscopy Family History Family History Father Esophageal cancer Mother Cardiac abnormality Social History Social History (Updated 02/14/24 @ 11:09 by Georgia Gutierrez PA-C) Household Members: Spouse Alcohol intake: current Alcohol intake frequency: a few times a month Alcohol type: beer Patient Tobacco Use Status: Former Tobacco user Years Smoked: 20pyh, quit 2020 Advance Directives: No Advance Directives Information Provided: No Current occupational status: employed 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 Physical Exam ED Vital Signs: Vital Signs - 24 hr 09/30/24 17:17 09/30/24 19:44 Temperature 97.5 F 97.7 F Pulse Rate 82 65 Respiratory Rate 16 18 Blood Pressure 131/76 122/65 Pulse Oximetry 98 100 Oxygen Delivery Method Room Air Room Air BMI result Body Mass Index 29.3 Const Other: Alert well-appearing Orientation/consciousness: patient oriented x3 Resp Effort & Inspection: normal respiratory effort Cardio Other: Normal peripheral perfusion GI Other: Abdomen is soft, nontender nondistended no guarding with deep palpation, no bright red blood per rectum, no melena, no hemorrhoids appreciated Skin Other: Warm dry no rash Neuro General: patient oriented x3, gait normal, no focal motor deficits and CN's II-XI intact bilaterally Psych Other: Cooperative Course Course Course Narrative: RME, this is a rapid medical exam performed by Jose Diaz please refer to primary provider for complete H&P- 59-year-old male presents for evaluation abdominal diarrhea. He reports 5 episodes of diarrhea today. Plan for labs, urinalysis and stool studies. Medications Administered Discontinued Medications Generic Name Dose Route Start Last Admin Trade Name Freq PRN Reason Stop Dose Admin Sodium Chloride 1,000 mls @ 999 mls/hr 09/30/24 20:00 09/30/24 21:07 Ns IV 09/30/24 21:00 Infused .Q1H1M JOSÉ Infusion Medical Decision Making Medical Decision Making MDM Narrative: 59 year-old male with pmhx of hemorrhoids, constipation, and aortic stenosis who presents to the ED with concern of diarrhea x 2 days. Patient had 2 episodes of loose stool. Pt reports his stools are typically hard due to his constipation. He reports bright red blood in his stool. The blood was on the toilet paper after he wiped, this is happened in the past secondary to his hemorrhoids. Pain within left lower quadrant, is intermittent comes and goes, is symptom-free at this time. Denies nausea/vomiting, fever. Problem: Age, hemorrhoids, constipation History: Per patient I have considered the following differential diagnoses: Constipation, diverticulitis, colitis, thrombosed hemorrhoid, other lower GI bleeding, bowel obstruction Plan: In regard to abdominal pain, it is intermittent, the patient's abdominal exam was completely benign. Despite having 2 episodes of loose stool, he could likely be constipated we will add a KUB. Screening labs were already obtained and were overall unremarkable, he has a little bit dry, we will give a L of fluid. In regard to the rectal bleeding, this is likely from straining due to his constipation, we are not appreciating anything on exam, in his H&H are stable. Thought about bowel obstruction, however he has no nausea vomiting or distention. Labs: No leukocytosis, not anemic, mild hypernatremia, no additional electrolyte abnormalities noted, urine not infected KUB: 1 view abdomen Comparison: None Findings: Normal bowel gas pattern. Normal stool quantity. No abnormal calcifications. No obvious pneumoperitoneum or pneumatosis. No acute fractures Impression: Normal bowel gas pattern Lab Data 09/30/24 17:35 09/30/24 17:35 Labs: Lab Results 09/30/24 Range/Units 17:35 WBC 6.9 (4.8-10.8) X10*3/uL RBC 4.90 (4.60-5.80) X10*6/uL Hgb 14.8 (14.0-18.0) g/dl Hct 42.7 (42.0-52.0) % MCV 87.1 (80.0-98.0) fL MCH 30.2 (27.0-33.0) pg MCHC 34.7 (31.0-36.0) g/dl RDW 12.9 (11.0-16.0) % Plt Count 177 (160-400) X10*3/uL MPV 9.7 (9.4-12.4) fL Immature Gran % (Auto) 0.6 H (0.0-0.4) % Neut % (Auto) 73.3 H (45-73) % Lymph % (Auto) 19.0 L (20-40) % Fallon % (Auto) 6.0 (2-11) % Eos % (Auto) 0.7 (0-4) % Baso % (Auto) 0.4 (0-2) % Lymph # (Auto) 1.3 (1.2-4.9) X10*3/uL Fallon # (Auto) 0.4 (0.1-1.2) X10*3/uL Eos # (Auto) 0.1 (0.0-0.4) X10*3/uL Baso # (Auto) 0.0 (0.0-0.2) X10*3/uL Abs Immat Gran (auto) 0.04 H (0.00-0.03) X10*3/uL Absolute Neuts (auto) 5.1 (2.0-8.3) x10*3/uL Absolute Nucleated RBC 0.000 (0.0-0.012) X10*3/uL Nucleated RBC % (auto) 0.0 (0.0-0.2) /100WBC Sodium 146 H (135-145) mmol/L Potassium 4.2 (3.3-5.1) mmol/L Chloride 109 H (96-108) mmol/L Carbon Dioxide 29 (22-29) mmol/L Anion Gap 12 (12-20) BUN 17 H (9-16) mg/dL Creatinine 0.98 (0.5-1.4) mg/dL Estim Creat Clear Calc 77.0 Estimated GFR > 60 Random Glucose 157 H (60-115) mg/dL Calcium 9.3 (8.4-10.2) mg/dL Total Bilirubin 0.3 (0.0-1.0) mg/dL AST 30 (5-37) U/L ALT 32 (0-40) U/L Alkaline Phosphatase 67 (39-117) U/L Total Protein 6.6 (6.5-8.0) g/dL Albumin 4.2 (3.5-5.0) g/dL Lipase 31 (8-78) U/L Discharge Plan Discharge Clinical Impression: Constipation, Dehydration Patient Disposition: Home, Self-Care Instructions: Constipation (ED), Dehydration (ED) Additional Instructions: Overall all of your screening labs were normal, you were subtly dehydrated. In addition, you were mildly constipated. See home care instructions. Use the Colace as directed this is a stool softener. Use the MiraLax as directed. You should stay on these medications indefinitely to prevent further episodes of constipation. Follow up with your primary care provider as needed. Prescriptions: New docusate sodium [Colace] 100 mg capsule 100 mg PO BID Qty: 60 0RF polyethylene glycol 3350 [Miralax] 17 gram/dose powder 17 g PO BID Qty: 238 0RF No Action diclofenac potassium 50 mg tablet 50 mg PO TID PRN Print Language: Maori
[2024-09-30 17:41] LABS: MANUAL DIFF FLAG NO
[2024-09-30 17:43] LABS: Hematocrit 42.7 % (42.0-52.0); Hemoglobin 14.8 g/dl (14.0-18.0); Imm Gran Abs Auto 0.04 X10*3/uL (0.00-0.03); Imm Gran Pct Auto 0.6 % (0.0-0.4); Lymphocytes Absolute Auto 1.3 X10*3/uL (1.2-4.9); Mean Corpuscular HGB Conc 34.7 g/dl (31.0-36.0); Mean Corpuscular Hemoglobin 30.2 pg (27.0-33.0); Mean Corpuscular Volume 87.1 fL (80.0-98.0); NRBC Abs Auto 0.000 X10*3/uL (0.0-0.012); NRBC Pct Auto 0.0 /100WBC (0.0-0.2); Platelet Count 177 X10*3/uL (160-400); Red Blood Count 4.90 X10*6/uL (4.60-5.80); White Blood Count 6.9 X10*3/uL (4.8-10.8)
[2024-09-30 17:59] LABS: Alanine Aminotransferase 32 U/L (0-40); Albumin Level 4.2 g/dL (3.5-5.0); Alkaline Phosphatase 67 U/L (39-117); Anion Gap 12 (12-20); Aspartate Amino Transferase 30 U/L (5-37); Blood Urea Nitrogen 17 mg/dL (9-16); Calcium 9.3 mg/dL (8.4-10.2); Carbon Dioxide 29 mmol/L (22-29); Chloride 109 mmol/L (96-108); Creatinine Clr Calc Pharmacy 77.0; Estimated Glomerular Filt Rate > 60; Lipase 31 U/L (8-78); Potassium 4.2 mmol/L (3.3-5.1); Sodium 146 mmol/L (135-145); Total Protein 6.6 g/dL (6.5-8.0)
[2024-09-30 19:44] VITALS: BP 122/65; PULSE 65; RESP 18; TEMP 36.5; O2SAT 100
[2024-09-30 21:41] VITALS: BP 122/65; PULSE 65; RESP 18; TEMP 36.5; O2SAT 100
== END 2024-09-30 21:42 | disposition home or self-care (01) ==
PROVIDERS: Physician Assistant; Emergency Provider Emergency Medicine; PCP Internal Medicine
DX: E86.0 Dehydration (principal); K59.00 Constipation, unspecified; R19.7 Diarrhea, unspecified
CPT/HCPCS: 36415; 74018; 80053; 83690; 85025; 96360; 99284

== ENCOUNTER → 2024-09-30 19:46 | Outpatient (BNV) | payer MEDICAID, SELFPAY | PROVIDERS: Emergency Provider Emergency Medicine; PCP Internal Medicine; Visit Provider Radiology Diagnostic Radiology | DX: R10.9 Unspecified abdominal pain (principal) | CPT/HCPCS: 74018 ==

== ENCOUNTER 2024-11-07 07:39 | Outpatient (REF) | payer MEDICAID, SELFPAY ==
--- OUTSIDE RECORDS SUMMARY | 2024-11-07 07:43 | XMS_ITS | Encounter Summary ---
Author Organization [employer] Address [address] [facility] [address] [place] [address] Care Team Providers Care In House Counsel Name Role Phone Clem White MD Primary Care Prov ider Reason for Visit * Reason Onset Date Comments Medication Question 08/25/2024 Encounter Details Date Type Department Care Team ([facility] Contact Info) Description 08/25/2024 Telephone [facility] [address] [place], [place] [phone] Clem White MD [address] [place] [address] Medication Question Social History Tobacco Use Types Packs/Day Years Used Date Smoking Tobacco: Former Cigarettes 0.5 41 1 980 - 2020 Passive Smoke Exposure: Past Smokeless Tobacco: Never Alcohol Use Standard Drinks/Week Comments Never 0 (1 standard drink = 0.6 oz pur e alcohol) Depression Answer Date Recorded Patient Health Questionnaire-9 Score 1 07/27/2023 Patient Health Questionnaire-9 Score 1 07/27/2023 Last PHQ-9: Questionnaire Data Not on file 0 07/27/2023 Housing Stability Answer Date Recorded What is your housing situation today? I have brenna vilchis 07/27/[address] you li ve. Do you have problems with any of the following? None of the above 07/27/2023 Food Insecurity Answer Date Recorded Within the past 12 months, y ou worried that your food would run out before you got money to buy more: Never True 07/27/2023 Within the past 12 months,th e food you bought just didn't last and you didn't have enough money to get more: Never True Transportation Answer Date Recorded In the past 12 months, has l ack of transportation kept you from medical appts, meetings, work or from getting things needed for daily living? No 07/27/2023 Utilities Answer Date Recorded In the past 12 months, has t he electric, gas, oil or water company threatened to shut off services in your home? No 07/27/2023 Depression Answer Date Recorded Patient Health Questionnaire-2 Score 1 07/27/2023 Sex and Gender Information Value Date Recorded Sex Assigned at Male 01/01/2022 10:36 AM EDT Legal Sex Male 10:36 AM EDT Gender Identity Male 01/01/2022 10:36 AM EDT Sexual Orientation Straight 01/01/2022 10 :36 AM EDT documented as of this encounter Miscellaneous Notes * Telephone Encounter - Deidra Rivera - 08/25/2024 9:55 AM EDT Tc from pt requesting status on a medication that was going to be prescribed on last visit. Please call to clarify. documented in this encounter Plan of Treatment Not on file documented as of this encounter Visit Diagnoses Not on filedocumented in this encounter Additional Health Concerns Assessment Noted Time PHQ-9 Depression Total Score: 1 07/27/19 24 9:44 AM EDT documented as of this encounter Care Teams In House Counsel Relationship Specialty Start Date End Date Clem White MD [address] [place] [id number] PCP - General Internal Medicine 02/16/21 documented as of this encounter
--- OUTSIDE RECORDS SUMMARY | 2024-11-07 07:43 | XMS_ITS | Encounter Summary ---
Author Organization [employer] Address [address] [facility] [address] [place] [address] Care Team Providers Care Speeder Operator Name Role Phone Clem White MD Primary Care Prov ider Reason for Visit * Reason Onset Date Comments Lab Orders 08/09/2023 Encounter Details Date Type Department Care Team ([facility] st Contact Info) Description 08/09/2023 Telephone [facility] [address] [place] [address] Clem White MD [address] [place] [address] Lab Orders Social History Tobacco Use Types Packs/Day Years [...] encounter Miscellaneous Notes * Telephone Encounter - Amy Tavarez RN - 08/12/2023 1:01 PM EDT Message was sent to PCP to review. Pending PCP response. * Telephone Encounter - Mart Charles - 08/09/2023 8:09 AM EDT Tc from pt requesting order for progesterone test. Pt stated was advised by hospital, travel writer failedto verify what hospital. For further clarification please contact pt at [phone]. Wolof Speaker documented in this encounter Plan of Treatment Not on file documented as of this encounter Visit Diagnoses Not on filedocumented in this encounter Additional Health Concerns Assessment Noted Time PHQ-9 Depression Total Score: 1 07/27/19 24 9:44 AM EDT documented as of this encounter Care Teams Speeder Operator Relationship Specialty Start Date End Date Clem White MD [address] [place] [id number] PCP - General Internal Medicine 02/16/21 documented as of this encounter
--- OUTSIDE RECORDS SUMMARY | 2024-11-07 07:43 | XMS_ITS | Encounter Summary ---
Author Organization [employer] Address [address] [place] [address] Care Team Providers Care Quality Control Engineer Name Role Phone Clem White MD Primary Care Prov ider Encounter Details Date Type Department Care Team ([facility] st Contact Info) Description 10/31/2023 Telephone [facility] [address] [place], [place] [phone] Clem White MD [address] [place] [address] Social History Tobacco Use Types Packs/Day Years [...] encounter Miscellaneous Notes * Telephone Encounter - Halima Mcdaniels RN - 10/31/2023 3:40 PM EDT Telephone call returned to patient in regards to below message. Patient stating he wants annul labs, also that he missed appointment for [facility] Lung screening and they told him he needs a new referral. He also stated he needs a vaccine that his PCP reccommended to him, for my age .Patient states its not shingles, pneumonia, or flu. Patient verbalized understanding and denied having any further questions or concerns at this time. * Telephone Encounter - Deidra Rivera - 10/31/2023 12:22 PM EDT Tc from pt requesting to get annul labs done and to get lung tested . Please call pt to clarify. documented in this encounter Plan of Treatment Not on file documented as of this encounter Visit Diagnoses Not on filedocumented in this encounter Additional Health Concerns Assessment Noted Time PHQ-9 Depression Total Score: 1 07/27/19 24 9:44 AM EDT documented as of this encounter Care Teams Quality Control Engineer Relationship Specialty Start Date End Date Clem White MD [address] [place] [id number] PCP - General Internal Medicine 02/16/21 documented as of this encounter
--- OUTSIDE RECORDS SUMMARY | 2024-11-07 07:43 | XMS_ITS | Encounter Summary ---
Author Organization [employer] Address [address] [facility] [address] [place] [address] Care Team Providers Care Revenue Cycle Administrator Name Role Phone Clem White MD Primary Care Prov ider Reason for Visit * Reason Onset Date Comments Appointment Request 04/10/2023 Encounter Details Date Type Department Care Team ([facility] st Contact Info) Description 04/10/2023 Telephone [facility] MEDICINE [address] [place] [address] Clem White MD [address] [facility] [address] [place] [address] Appointment Request Social History Tobacco Use Types Packs/Day Years Used Date Smoking Tobacco: Never Smokeless Tobacco: Never Alcohol Use Standard Drinks/Week Comments Never 0 (1 standard drink = 0.6 oz pur e alcohol) Depression Answer Date Recorded Patient Health Questionnaire-9 Score 0 04/10/2022 Housing Stability Answer Date Recorded What is your housing situation today? I have brennaevette vilchis 01/11/[address] you li ve. Do you have problems with any of the following? None of the above 01/11/2023 Food Insecurity Answer Date Recorded Within the past 12 months, y ou worried that your food would run out before you got money to buy more: Never True 01/11/2023 Within the past 12 months,th e food you bought just didn't last and you didn't have enough money to get more: Never True 12/2022 Transportation Answer Date Recorded In the past 12 months, has l ack of transportation kept you from medical appts, meetings, work or from getting things needed for daily living? No 01/11/2023 Utilities Answer Date Recorded In the past 12 months, has t he electric, gas, oil or water company threatened to shut off services in your home? No 01/11/2023 Depression Answer Date Recorded Patient Health Questionnaire-2 Score 0 04/10/2022 Sex and Gender Information Value Date Recorded Sex Assigned at Male 01/01/2022 10:36 AM EDT Legal Sex Male 10:36 AM EDT Gender Identity Male 01/01/2022 10:36 AM EDT Sexual Orientation Straight 01/01/2022 10 :36 AM EDT documented as of this encounter Miscellaneous Notes * Telephone Encounter - Shannan Gabriel - 04/10/2023 10:42 AM EST Tc from pt requesting f/u appt with PCP ,pt is also requesting blood work. documented in this encounter Plan of Treatment Not on file documented as of this encounter Visit Diagnoses Not on filedocumented in this encounter Additional Health Concerns Assessment Noted Time PHQ-9 Depression Total Score: 0 04/10/19 23 9:36 AM EST documented as of this encounter Care Teams Revenue Cycle Administrator Relationship Specialty Start Date End Date Clem White MD [address] [place] [id number] PCP - General Internal Medicine 02/16/21 documented as of this encounter
--- OUTSIDE RECORDS SUMMARY | 2024-11-07 07:43 | XMS_ITS | Encounter Summary ---
Author Organization [employer] Address [address] [place] [address] Care Team Providers Care Uniform Cap Operator Name Role Phone Clem White MD Primary Care Prov ider Reason for Visit * Reason Onset Date Comments Results 01/13/2024 Encounter Details Date Type Department Care Team ([facility] st Contact Info) Description 01/13/2024 Telephone [facility] MEDICINE [address] [place] [address] Clem White MD [address] [place] [address] Results Social History Tobacco Use Types Packs/Day Years [...] encounter Miscellaneous Notes * Telephone Encounter - Marcus Hinton - 01/13/2024 10:49 AM EST Tc from pt requesting lab results, Pt will like a call any day before 12 pm as he goes in to work at 12:30 pm , documented in this encounter Plan of Treatment Not on file documented as of this encounter Visit Diagnoses Not on filedocumented in this encounter Additional Health Concerns Assessment Noted Time PHQ-9 Depression Total Score: 1 07/27/19 24 9:44 AM EDT documented as of this encounter Care Teams Uniform Cap Operator Relationship Specialty Start Date End Date Clem White MD [address] [place] [address] PCP - General Internal Medicine 02/16/21 documented as of this encounter
--- OUTSIDE RECORDS SUMMARY | 2024-11-07 07:43 | XMS_ITS | Encounter Summary ---
Author Organization [employer] Address [address] [facility] [address] [facility] [address] [place] [address] Care Team Providers Care Strategic Planning Consultant Name Role Phone Clem White MD Primary Care Prov ider Reason for Visit * Reason Onset Date Comments Results 01/08/2024 Encounter Details Date Type Department Care Team ([facility] st Contact Info) Description 01/08/2024 Telephone [facility] MEDICINE [address] [place] [address] Clem White MD [address] [address] [place] [address] Results Social History Tobacco Use Types Packs/Day [...] encounter Miscellaneous Notes * Telephone Encounter - Dameon Garza - 01/08/2024 10:28 AM EST Tc from pt requesting a call back regarding results on lab done 01/02. Contact pt at [phone] documented in this encounter Plan of Treatment Not on file documented as of this encounter Visit Diagnoses Not on filedocumented in this encounter Additional Health Concerns Assessment Noted Time PHQ-9 Depression Total Score: 1 07/27/19 24 9:44 AM EDT documented as of this encounter Care Teams Strategic Planning Consultant Relationship Specialty Start Date End Date Clem White MD [address] [place] [id number] PCP - General Internal Medicine 02/16/21 documented as of this encounter
--- OUTSIDE RECORDS SUMMARY | 2024-11-07 07:43 | XMS_ITS | Encounter Summary ---
Author Organization [employer] Address [address] [facility] [address] [place] [address] Care Team Providers Care Electrical Systems Engineer Name Role Phone Clem White MD Primary Care Prov ider Reason for Visit * Reason Onset Date Comments Referral 04/10/2023 Encounter Details Date Type Department Care Team ([facility] st Contact Info) Description 04/10/2023 Telephone [facility] MEDICINE [address] [place] [address] Clem White MD [address] [address] [place] [address] Referral Social History Tobacco Use Types Packs/Day Years Used Date Smoking Tobacco: Never Smokeless Tobacco: Never Alcohol Use Standard Drinks/Week Comments Never 0 (1 standard drink = 0.6 oz pur e alcohol) Depression Answer Date Recorded Patient Health Questionnaire-9 Score 0 04/10/2022 Housing Stability Answer Date Recorded What is your housing situation today? I have brenna vilchis 01/11/[address] you [...] Telephone Encounter - Amy Tavarez RN - 04/10/2023 10:56 AM EST Please review message below. Pt requesting renewal of referral for PT at below location for pt chronic back pain. * Telephone Encounter - Shannan Gabriel - 04/10/2023 10:51 AM EST Tc from pt requesting renewal on referral for [facility] on [address], [place] [address], speech writer does not see any previous referral for that location, please contact pt for clarifications. documented in this encounter Plan of Treatment Not on file documented as of this encounter Visit Diagnoses Not on filedocumented in this encounter Additional Health Concerns Assessment Noted Time PHQ-9 Depression Total Score: 0 04/10/19 23 9:36 AM EST documented as of this encounter Care Teams Electrical Systems Engineer Relationship Specialty Start Date End Date Clem White MD [address] [place] [id number] PCP - General Internal Medicine 02/16/21 documented as of this encounter
--- OUTSIDE RECORDS SUMMARY | 2024-11-07 07:43 | XMS_ITS | Encounter Summary ---
Author Organization [employer] Address [address] [facility] [address] [place] [address] Care Team Providers Care Supervisor Assembly Department Name Role Phone Clem White MD Primary Care Prov ider Encounter Details Date Type Department Care Team (Late st Contact Info) Description 06/14/2023 Orders Only [facility] MEDICINE [address] [place], [place] [phone] ProviderPrabhu MD Social History Tobacco Use Types Packs/Day Years [...] AM EDT documented as of this encounter Plan of Treatment Not on file documented as of this encounter Procedures Procedure Name Priority Date/Time Associated Diagnosis Comments HM COLONOSCOPY Routine 03/31/2020 12:19 PM EST documented in this encounter Results * Hm Colonoscopy (03/31/2020 12:19 PM EST) us Historical Provider HEALTH MAINTENANCE Final Result documented in this encounter Visit Diagnoses Not on filedocumented in this encounter Additional Health Concerns Assessment Noted Time PHQ-9 Depression Total Score: 0 04/10/19 23 9:36 AM EST documented as of this encounter Care Teams Supervisor Assembly Department Relationship Specialty Start Date End Date DeniseClem Velazquez MD [address] [place] [id number] PCP - General Internal Medicine 02/16/21 documented as of this encounter
--- OUTSIDE RECORDS SUMMARY | 2024-11-07 07:43 | XMS_ITS | Encounter Summary ---
Author Organization [employer] Address [address] [facility] [address] [place] [address] Care Team Providers Care Shoulder Puncher Name Role Phone Clem White MD Primary Care Prov ider Encounter Details Date Type Department Care Team (Late st Contact Info) Description 04/10/2023 Telephone [facility] MEDICINE [address] [place] [address] Clem White MD [address] [place] [address] Social History Tobacco Use Types Packs/Day Years [...] documented as of this encounter Care Teams Shoulder Puncher Relationship Specialty Start Date End Date Clem White MD [address] [place] [id number] PCP - General Internal Medicine 02/16/21 documented as of this encounter
--- OUTSIDE RECORDS SUMMARY | 2024-11-07 07:44 | XMS_ITS | Clinical Summary ---
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 Name Role Phone Clem White MD Primary Care Prov ider Allergies No known active allergies Medications ibuprofen 600 MG tablet TAKE 1 TABLET BY MOUTH 3 TIMES A DAY 90 tablet 09/04/2023 Active diclofenac (Cataflam) 50 MG tablet TAKE 1 TABLET BY MOUTH TWICE A DAY 60 tablet 08/25/2024 Active Active Problems Problem Noted Date Diagnosed Date Low libido 07/27/2023 Assessment & Plan (07/27/2023 3:13 PM EDT): Will send testosterone test, follow up afterwards Smoker 04/10/2022 Assessment & Plan (12/27/2023 9:18 AM EDT): Stopped smoking 3 years ago, missed screening lung cancer appointment Assessment & Plan (07/27/2023 3:14 PM EDT): Will refer for lung cancer screening >20 pack a year quitted 3 years ago Assessment & Plan (04/10/2022 1:21 PM EST): Will refer for lung cancer screening Chronic midline low back pain without sciatica 0 04/10/2022 Assessment & Plan (12/27/2023 9:18 AM EDT): Controlled with ibuprofen as needed, no changes will be made, avoid heavy lifting Assessment & Plan (07/27/2023 3:13 PM EDT): Chronic, no neurologi deficit, will refill ibuprofen for pain as needed Assessment & Plan (04/10/2022 1:21 PM EST): Continue stretching exercises, will renew diclofenac Bilateral carpal tunnel syndrome 04/10/2022 Assessment & Plan (04/10/2022 1:20 PM EST): Will place order for bilateral EMG, he has risk based on heavy lifting and repetitive movements Nonrheumatic aortic valve stenosis 04/10/2022 Assessment & Plan (12/27/2023 9:17 AM EDT): Followed by cardiology, denied chest pain or shortness of breath, Assessment & Plan (04/10/2022 1:19 PM EST): Followed by cardiology, no chest pain, shortness of breath reported, Trigger middle finger of right hand 04/10/2022 Assessment & Plan (04/10/2022 1:20 PM EST): Will refer to hand surgeon Prostate cancer screening 04/10/2022 Assessment & Plan (04/10/2022 1:22 PM EST): Will order a psa for follow up Encounters Date Type Department Care Team Description 09/30/2024 Orders Only [facility] External Provider, [facility] 09/08/2024 Population Health Risk Score [facility] ([facility]) Department [address] [phone] Provider, Population Health Generic 08/25/2024 Refill [facility] [address] [place] [address] Clem White MD 08/25/2024 Telephone [facility] [address] [place] [address] Clem White MD Medication Question 08/21/2024 2:00 PM EDT Office Visit [facility] [address] [place] [address] Evans Poole MD Left lower quadrant abdominal pain (Primary Dx); Nonrheumatic aortic valve stenosis 08/21/2024 Travel 08/21/2024 Telephone [facility] [address] [place], [place] [phone] Clem White MD Nurse Triage from Last 3 Months Immunizations Immunization Administration Dates Next Due Influenza injectable quadriv alent IIV4 with preservative 04/10/2022 Influenza, seasonal, injectable, preservative fr ee 12/27/2023 Pfizer Covid-19 Vaccine 12+ 12/27/2023 Tdap 04/10/2022 Social History Tobacco Use Types Packs/Day Years Used Date Smoking Tobacco: Former Cigarettes 0.5 41 1 980 - 2020 Passive Smoke Exposure: Past Smokeless Tobacco: Never Tobacco Cessation:Counseling Given: Not Answered Alcohol Use Standard Drinks/Week Comments Never 0 (1 standard drink = 0.6 oz pur e alcohol) Depression Answer Date Recorded Patient Health Questionnaire-9 Score 1 07/27/2023 Patient Health Questionnaire-9 Score 1 07/27/2023 Last PHQ-9: Questionnaire Data Not on file 0 07/27/2023 Housing Stability Answer Date Recorded What is your housing situation today? I have brenna deng 07/27/[address] you li [...] Orientation Straight 01/01/2022 10 :36 AM EDT Last Filed Vital Signs Vital Sign Reading Time Taken Comments Blood Pressure 124/76 08/21/2024 1:58 PM EDT Pulse 83 08/21/2024 1:58 PM EDT Temperature 36.7 C (98 F) 08/21/2024 1:58 PM EDT Respiratory Rate 20 08/21/2024 1:58 PM EDT Oxygen Saturation 97% 08/21/2024 1:58 PM EDT Inhaled Oxygen Concentration - - Weight 79.4 kg (175 lb) 08/21/2024 1:58 PM EDT Height 162.6 cm (5' 4 ) 08/21/2024 1:58 PM EDT Body Mass Index 30.04 08/21/2024 1:58 PM EDT Plan of Treatment Health Maintenance Due Date Last Done Comments CT Colonography 1963 FIT DNA/Cologuard 1965 FIT 1965 FOBT 1965 Sigmoidoscopy 1965 Disability Screening 1963 Alcohol/Substance Use Screening 1975 Pneumococcal Vaccine: 50+ Years (1 of 2 - PCV) 1982 Zoster Vaccines (2 of 2) 02/04/2020 12/10/2019 RSV Patients and Patients Aged 60 years or older (1 - Risk 60-74 years 1-dose series) 2023 Depression Screening 07/26/2024 07/27/2023, 07/27/19 24 SDOH Screening 07/26/2024 07/27/2023 Influenza Vaccine (#1) 2024 , 04/10/2022, 11/21/2020, Additional history exists Lung Cancer Screening 02/13/2025 02/14/2024 Colonoscopy 03/31/2025 03/31/2020 Colorectal Cancer Screening 03/31/2025 Tobacco Screening 08/21/2025 08/21/2024 Lipid Panel 01/02/2029 01/03/2024, 02/0 09/2022, 06/23/2021, Additional history exists DTaP/Tdap/Td Vaccines (2 - Td or Tdap) 04/10/2032 04/10/2022 HIV Screening Completed 04/10/2022, 12/01/2019 Hepatitis C Screening Completed 04/10/2022, 022 COVID-19 Vaccine Completed 12/27/2023, 06/2020, 07/04/2020, Additional history exists HIB Vaccines Aged Out No longer eligi ble based on patient's age to complete this topic HPV Vaccines Aged Out No longer eligi ble based on patient's age to complete this topic Hepatitis A Vaccines Aged Out No long er eligible based on patient's age to complete this topic Hepatitis B Vaccines Aged Out No long er eligible based on patient's age to complete this topic IPV Vaccines Aged Out No longer eligi ble based on patient's age to complete this topic Meningococcal B Vaccine Aged Out No l onger eligible based on patient's age to complete this topic Meningococcal Vaccine Aged Out No koko juan alberto eligible based on patient's age to complete this topic RSV under 20 months Aged Out No longe r eligible based on patient's age to complete this topic Rotavirus Vaccines Aged Out No longer eligible based on patient's age to complete this topic Procedures Procedure Name Priority Date/Time Associated Diagnosis Comments XR KUB AND UPRIGHT 2 VIEWS Routine 09/30/2024 8:28 PM EDT LIPASE Routine 09/30/2024 5:35 PM EDT COMPREHENSIVE METABOLIC PANEL Routine 09/30/2024 5:35 PM EDT CBC WITH AUTO DIFFERENTIAL Routine 09/30/2024 5:35 PM EDT LDCT LUNG SCREENING Routine 02/14/2024 1 1:12 AM EST LIPID PANEL, STANDARD Routine 01/03/2024 7:00 AM EDT Obesity (BMI 30-39.9) HEPATITIS C AB W/REFL TO HCV RNA, QN, PCR Routine 04/10/2022 10:08 AM EST Nonrheumatic aortic valve stenosis HIV 1 RNA, QN PCR W/RFL DAVID (RTI,PI,INTEGRASE) Routine 04/10/2022 10:08 AM EST Nonrheumatic aortic valve stenosis HM COLONOSCOPY Routine 03/31/2020 12:19 PM EST from Last 3 Months or Most Recently Relevant to Health Maintenance Results * XR KUB and Upright 2 Views (09/30/2024 8:28 PM EDT) Anatomical Region Laterality Modality Radiographic Rosie ging 09/30/2024 8:28 PM EDT Narrative 09/30/2024 8:30 PM EDT [address] [address] XRay Report Signed Patient: Eugenio Franco MR#: M [id number] : 1965 Acct:[id number] Age/Sex: 59 / M ADM Date: 09/30/24 Loc: .ED Attending Dr: Ordering Physician: Marlys Hart Date of Service: 09/30/24 Procedure(s): XR KUB Accession Number(s): [id number] cc: Clem White MD; Marlys Hart CLINICAL HISTORY: pain, constipation 1 view abdomen Comparison: None Findings: Normal bowel gas pattern. Normal stool quantity. No abnormal calcifications. No obvious pneumoperitoneum or pneumatosis. No acute fractures Impression: Normal bowel gas pattern This document has been electronically signed by: Maximino Engel MD on 09/30/2024 20:28:53 Dictated By: Maximino Engel MD Signed By: <Electronically signed by Maximino Engel MD in OV> 09/30/242028 DD/ 27 TD/TT: 09/30/242027 Coal Cager: Procedure Note Donotuseinterpreter, Image - 09/30/[address] [address] XRay Report Signed Patient: Eugenio FrancoMR#: M [id number] : 1965Acct:[id number] Age/Sex: 59 / MADM Date: 09/30/24 Loc: HO.ED Attending Dr: Ordering Physician: Marlys Hart Date of Service: 09/30/24 Procedure(s): XR KUB Accession Number(s): [id number] cc: Clem White MD; Marlys Hart CLINICAL HISTORY: pain, constipation 1 view abdomen Comparison: None Findings: Normal bowel gas pattern. Normal stool quantity. No abnormal calcifications. No obvious pneumoperitoneum or pneumatosis. No acute fractures Impression: Normal bowel gas pattern This document has been electronically signed by: Maximino Engel MD on 09/30/2024 20:28:53 Dictated By: Maximino Engel MD Signed By: <Electronically signed by Maximino Engel MD in OV> 09/30/242028 DD/ 27 TD/TT: 09/30/242027 Coal Cager: [facility] External Provider IMG XR PROCEDURES Final Result * (ABNORMAL) CBC auto differential (09/30/2024 5:35 PM EDT) White Blood Count 6.9 4.8 - 10.8 X10*3/uL [facility] Red Blood Count 4.90 4.60 - 5.80 X10*6/uL [facility] Hemoglobin 14.8 14.0 - 18.0 g/dl [facility] Hematocrit 42.7 42.0 - 52.0 % [facility] Mean Corpuscular Volume 87.1 80.0 - 98.0 fL [facility] Mean Corpuscular Hemoglobin 30.2 27.0 - 33.0 pg [facility] Mean Corpuscular HGB Conc 34.7 31.0 - 36.0 g/dl [facility] Red Cell Distribution Width 12.9 11.0 - 16.0 % [facility] Platelet Count 177 160 - 400 X10*3/uL [facility] Mean Platelet Volume 9.7 9.4 - 12.4 fL [facility] Neutrophils Percent Auto 73.3(H) 45 - 73 % [facility] Imm Gran Pct Auto 0.6(H) 0.0 - 0.4 % [facility] Lymphocytes Percent Auto 19.0(L) 20 - 40 % [facility] Monocytes Percent Auto 6.0 2 - 11 % [facility] Eosinophils Percent Auto 0.7 0 - 4 % [facility] Basophils Percent Auto 0.4 0 - 2 % [facility] NRBC Pct Auto 0.0 0.0 - 0.2 /100WBC [facility] Neutrophils Absolute Auto 5.1 2.0 - 8.3 x10*3/uL [facility] Imm Gran Abs Auto 0.04(H) 0.00 - 0.03 X10*3/uL [facility] Lymphocytes Absolute Auto 1.3 1.2 - 4.9 X10*3/uL [facility] Monocytes Absolute Auto 0.4 0.1 - 1.2 X10*3/uL [facility] Eosinophils Absolute Auto 0.1 0.0 - 0.4 X10*3/uL [facility] Basophils Absolute Auto 0.0 0.0 - 0.2 X10*3/uL [facility] NRBC Abs Auto 0.000 0.0 - 0.012 X10*3/uL [facility] 09/30/2024 5:35 PM EDT 09/30/2024 5:39 PM EDT us Generic External Data Provider LAB BLOOD ORDERAB LES Final Result Performing Organization Address City/[facility]/ZIP Co de Phone Number [facility] [address] [place] [phone] * Lipase (09/30/2024 5:35 PM EDT) Lipase 31 8 - 78 U/L [facility] 09/30/2024 5:35 PM EDT 09/30/2024 5:39 PM EDT us Generic External Data Provider LAB BLOOD ORDERAB LES Final Result Performing Organization Address City/[facility]/ZIP Co de Phone Number [facility] [address] [place] [phone] * (ABNORMAL) Comprehensive Metabolic Panel (09/30/2024 5:35 PM EDT) Sodium 146(H) 135 - 145 mmol/L [facility] Potassium 4.2 3.3 - 5.1 mmol/L [facility] Chloride 109(H) 96 - 108 mmol/L [facility] Carbon Dioxide 29 22 - 29 mmol/L [facility] Anion Gap 12 12 - 20 [facility] Urea Nitrogen (BUN) 17(H) 9 - 16 mg/dL [facility] Creatinine, Serum 0.98 0.5 - 1.4 mg/dL [facility] Creatinine Clr Calc Pharmacy 77.0 [facility] Comment:eGFR (calculated fro m the MDRD study equation) and eCrCl(calculated from the Cockcroft-Gault equation) are based ondifferent parameters and may not yield comparable results.If eCrCl result is absurd, please check patient'sheight/weight. Estimated Glomerular Filt Rate >60 [facility] Comment:Chronic Kidney Disea se: Estimated GFR < 60 mL/min/1.13e8Zpetjs Kidney Disease: Estimated GFR < 15 mL/min/1.73m2 Glucose 157(H) 60 - 115 mg/dL [facility] Calcium 9.3 8.4 - 10.2 mg/dL [facility] Bilirubin, Total 0.3 0.0 - 1.0 mg/dL [facility] Aspartate Amino Transferase 30 5 - 37 U/L [facility] Alanine Aminotransferase 32 0 - 40 U/L [facility] Total Protein 6.6 6.5 - 8.0 g/dL [facility] Albumin Level 4.2 3.5 - 5.0 g/dL [facility] Alkaline Phosphatase 67 39 - 117 U/L [facility] 09/30/2024 5:35 PM EDT 09/30/2024 5:39 PM EDT us Generic External Data Provider LAB BLOOD ORDERAB LES Final Result [facility] [address] [place] [phone] * CT Lung Screening Low dose (02/14/2024 11:12 AM EST) Anatomical Region Laterality Modality Lung Computed Tomogra phy 02/14/2024 11:1 2 AM EST Narrative 03/19/2024 10:16 AM EST [address] [address] [address] Scan Report Signed Patient: Eugenio Franco MR#: M [id number] : 1965 Acct:[id number] Age/Sex: 58 / M ADM Date: 02/14/24 Loc: HO.CT Attending Dr: Georgia Gutierrez PA-C Ordering Physician: Georgia Gutierrez PA-C Date of Service: 02/14/24 Procedure(s): CT lung screening Accession Number(s): [id number] cc: Clem White MD; Georgia Gutierrez PA-C Report Number: [id number]: Total DLP = 55.00 mGy-cm EXAMINATION: CT LOW-DOSE SCREENING CHEST WITHOUT CONTRAST CLINICAL INFORMATION: Personal history of nicotine dependence. The patient has a 32 pack-year history of smoking, having quit 1 year ago. COMPARISON: None available. TECHNIQUE: Multidetector volumetric CT imaging of the chest is performed on a Siemens SOMATOM Definition scanner without contrast using low dose technique. Additional 2D coronal and sagittal reformatted images and axial 3D maximum intensity projection (MIP) images are generated on the CT workstation. This CT examination was performed using dose optimization techniques as appropriate, variously including the following: *Automated exposure control *Adjustment of mA and/or kV according to patient size (this includes techniques or standardized protocols for targeted exams where dose is matched to indication/reason for exam; i.e. extremities or head) *Use of iterative reconstruction technique TOTAL EXAM DLP: 55 mGy-cm. CTDIvol: 1.62 mGy. FINDINGS: PULMONARY NODULES: There is a 2 mm nodule right lower lobe which is in the major fissure axial image 32/4, 2 nodules in the right major fissure image 29/4, 2 mm subpleural nodule left lower lobe axial image 38/4, 1 mm nodule left lower lobe axial image 37/4, 7 mm pleural-based lingular nodule axial image 36/4. LUNGS: Lungs bilaterally symmetrically expanded. No effusion or pneumothorax. Central airways patent. MEDIASTINUM: Thyroid lobes are symmetrical and normal. The central trachea and the bronchi are widely patent. Heart size and the pulmonary vascularity is normal. No pericardial effusion seen. No abnormal size mediastinal hilar lymph nodes. CORONARY ARTERY CALCIFICATION: None visualized on this study. THYROID GLAND: Unremarkable to the extent seen. CARDIOVASCULAR STRUCTURES: Aortic and heart size normal. No pericardial effusion. CHEST WALL/AXILLA: Unremarkable. UPPER ABDOMEN: Visualized liver, spleen, pancreas and adrenal glands are unremarkable. OSSEOUS STRUCTURES: No aggressive lytic or sclerotic process seen. There is mild spondylosis mid dorsal spine. CT/CT lung screening IMPRESSION: Unremarkable examination. ASSESSMENT: 1. Lung-RADS Category 1: Negative. There are no nodules or there are definitely benign nodules. 2. Lung-RADS Category S: None RECOMMENDATION: Low-dose annual CT chest. Electronically signed by: Jude Mendoza MD 03/19/2024 10:13 AM [facility] Dictated By: Jude Mendoza MD Signed By: <Electronically signed by Jude Mendoza MD in OV> 03/19/24 1013 DD/ 1112 TD/TT: 02/14/24 1127 Coal Cager: [facility] Procedure Note Donotuseinterpreter, Image - 03/19/[address] [address] [address] Scan Report Signed Patient: Lily Franco#: M [id number] : 1965Acct:[id number] Age/Sex: 58 / MADM Date: 02/14/24 Loc: HO.CT Attending Dr: Georgia Gutierrez PA-C Ordering Physician: Georgia Gutierrez PA-C Date of Service: 02/14/24 Procedure(s): CT lung screening Accession Number(s): [id number] cc: Clem White MD; Georgia Gutierrez PA-C Report Number: [id number]: Total DLP = 55.00 mGy-cm EXAMINATION: CT LOW-DOSE SCREENING CHEST WITHOUT CONTRAST CLINICAL INFORMATION: Personal history of nicotine dependence. The patient has a 32 pack-year history of smoking, having quit 1 year ago. COMPARISON: None available. TECHNIQUE: Multidetector volumetric CT imaging of the chest is performed on a Siemens SOMATOM Definition scanner without contrast using low dose technique. Additional 2D coronal and sagittal reformatted images and axial 3D maximum intensity projection (MIP) images are generated on the CT workstation. This CT examination was performed using dose optimization techniques as appropriate, variously including the following: *Automated exposure control *Adjustment of mA and/or kV according to patient size (this includes techniques or standardized protocols for targeted exams where dose is matched to indication/reason for exam; i.e. extremities or head) *Use of iterative reconstruction technique TOTAL EXAM DLP: 55 mGy-cm. CTDIvol: 1.62 mGy. FINDINGS: PULMONARY NODULES: There is a 2 mm nodule right lower lobe which is in the major fissure axial image 32/4, 2 nodules in the right major fissure image 29/4, 2 mm subpleural nodule left lower lobe axial image 38/4, 1 mm nodule left lower lobe axial image 37/4, 7 mm pleural-based lingular nodule axial image 36/4. LUNGS: Lungs bilaterally symmetrically expanded. No effusion or pneumothorax. Central airways patent. MEDIASTINUM: Thyroid lobes are symmetrical and normal. The central trachea and the bronchi are widely patent. Heart size and the pulmonary vascularity is normal. No pericardial effusion seen. No abnormal size mediastinal hilar lymph nodes. CORONARY ARTERY CALCIFICATION: None visualized on this study. THYROID GLAND: Unremarkable to the extent seen. CARDIOVASCULAR STRUCTURES: Aortic and heart size normal. No pericardial effusion. CHEST WALL/AXILLA: Unremarkable. UPPER ABDOMEN: Visualized liver, spleen, pancreas and adrenal glands are unremarkable. OSSEOUS STRUCTURES: No aggressive lytic or sclerotic process seen. There is mild spondylosis mid dorsal spine. CT/CT lung screening IMPRESSION: Unremarkable examination. ASSESSMENT: 1. Lung-RADS Category 1: Negative. There are no nodules or there are definitely benign nodules. 2. Lung-RADS Category S: None RECOMMENDATION: Low-dose annual CT chest. Electronically signed by: Jude Mendoza MD 03/19/2024 10:13 AM [facility] Dictated By: Jude Mendoza MD Signed By: <Electronically signed by Jude Mendoza MD in OV> 03/19/24 1013 DD/ 1112 TD/TT: 02/14/24 1127 Coal Cager: [facility] External Provider IMG CT PROCEDURES Edited Result - Final * (ABNORMAL) Lipid Panel, Standard (01/03/2024 7:00 AM EDT) Triglycerides 90 <150 mg/dL [facility] Comment:Desirable Triglyceri de: less than 150 mg/dLBorderline High Triglyceride 150-199 mg/dLHigh Triglyceride: 200-499 mg/dLVery High Triglyceride: greater than or equal to 5OO mg/dL Cholesterol 137 <200 mg/dL [facility] Comment:Desirable Cholestero l: less than 200 mg/dLBorderline High Cholesterol: 200-239 mg/dLHigh Cholesterol: greater than 239 mg/dL LDL Cholesterol Calculated 87 <100 mg/dL [facility] Comment:Desirable LDL: less than 100 mg/dLNear Optimal/Above Optimal LDL: 110- 129 mg/dLBorderline High LDL: 130-159 mg/dLHigh LDL: 160-189 mg/dLVery High LDL: greater than or equal to 190 mg/dL HDL Cholesterol 32(L) >40 mg/dL [facility] Comment:Desirable HDL: great er than 40 mg/dL Note: This HDL assay may give artificially low results in patients with liver disease. Blood Venous blood specimen / Unknown 01/03/2024 7:00 AM EDT 01/03/2024 7:01 AM EDT Clem Smith MD LAB BLOOD ORDERABL ES Final Result [facility] [address] [place] [phone] * HIV-1 RNA, Quantitative, Real-Time PCR with Reflex to Genotype (RTI, PI, Integrase) (04/10/2022 10:08 AM EST) HIV 1 RNA, QN PCR NOT DETECTED copies/mL [facility], HIV 1 RNA, QN PCR NOT DETECTED Log copies/mL [facility], Comment: REFERENCE RANGE: NOT DETECTED copies/mL NOT DETECTED Log copies/mL This test was performed using Real-Time Polymerase Chain Reaction. Reportable range is 20 to 10,000,000 copies/mL (1.30-7.00 Log copies/mL). 04/10/2022 10:0 8 AM EST 04/10/2022 10:09 AM EST Narrative [facility] - 04/13/2022 11:15 PM EST FASTING:YES FASTING: YES Clem Smith MD LAB BLOOD ORDERABL ES Final Result [facility] [address] [place] [address] [facility], [address] [place] [phone] * Hepatitis C Antibody with Reflex to HCV, RNA, Quantitative, Real-Time PCR (04/10/2022 10:08 AM EST) Pathologist [facility] Hepatitis C Antibody NON-REACT LIDYA NON-REACT LIDYA [facility] [place] [employer] Index <0.02 <1.00 [facility] [place] [employer] Comment: HCV antibody was non-reactive. There is no laboratory evidence of HCV infection. In most cases, no further action is required. However, if recent HCV exposure is suspected, a test for HCV RNA (test code 50507) is suggested. For additional information please refer to http://education.[employer]/faq/ING75e6 (This link is being provided for informational/ educational purposes only.) Blood Venous blood specimen / Unknown 04/10/2022 10:08 AM EST 04/10/2022 10:09 AM EST Narrative [facility] - 04/13/2022 11:15 PM EST FASTING:YES FASTING: YES Clem Smith MD LAB BLOOD ORDERABL ES Final Result [facility] [address] [facility] [place] [address] [employer] [facility] [address] [facility], ([address]) [place] [address] * Hm Colonoscopy (03/31/2020 12:19 PM EST) us Historical Provider HEALTH MAINTENANCE Final Result from Last 3 Months or Most Recently Relevant to Health Maintenance Insurance [facility] C3 Care Teams Cafeteria Operator Relationship Specialty Start Date End Date DeniseClem Velazquez MD [address] [place] [phone] PCP - General Internal Medicine 02/16/21
[2024-11-07 10:53] LABS: Anion Gap 11 (12-20); Blood Urea Nitrogen 17 mg/dL (9-16); Calcium 9.0 mg/dL (8.4-10.2); Carbon Dioxide 28 mmol/L (22-29); Chloride 106 mmol/L (96-108); Estimated Glomerular Filt Rate > 60; Potassium 3.6 mmol/L (3.3-5.1); Sodium 141 mmol/L (135-145)
== END 2024-11-07 07:40 | disposition home or self-care (01) ==
LOC: HO.LAB 07:39
PROVIDERS: PCP Internal Medicine; Visit Provider Internal Medicine
DX: R10.32 Left lower quadrant pain (principal)
CPT/HCPCS: 36415; 80048

== ENCOUNTER → 2024-11-17 12:28 | Outpatient (REF) | payer MEDICAID, SELFPAY ==
--- NOTE | 2024-11-17 12:30 | CA_ITS ---
Transthoracic Echocardiogram Patient (Last, First, Middle): Eugenio Franco, Gender: M Date of : 1965 Age: 59 Procedure Date: 11/17/2024 Procedure Type: Transthoracic Echocardiogram Location: OP Height: 165.1 cm Weight: 80.74 kg BSA: 1.88 m2 Heart Rate: bpm BP: 115 / 70 mmHg Cable Former: ELIZABETH/SAM Referring MD: Evans Poole MD Symptoms: NON RHEUMATIC AORTIC VALVE STENOSIS I35.01 Study Quality: Adequate ECG Rhythm: Sinus Conclusions: - The left ventricular systolic function is normal. The calculated ejection fraction is 56% by biplane method. - There is mild aortic valve regurgitation. Findings Left Ventricle Normal left ventricular cavity size. There is mildly increased left ventricular wall thickness. The left ventricular systolic function is normal. The calculated ejection fraction is 56% by biplane method. There is no evidence of regional wall motion abnormalities. Diastolic function is normal for age. Right Ventricle Mildly increased right ventricular cavity size. There is normal right ventricular systolic function. Atria Both atria are normal in size. Aortic Valve There is a normal trileaflet aortic valve. There is mild calcification of the aortic valve. There is no aortic valve stenosis. There is mild aortic valve regurgitation. Mitral Valve The mitral valve appears normal. There is trace mitral valve regurgitation. There is no mitral valve stenosis. Pulmonic Valve The pulmonic valve is likely normal. Tricuspid Valve There is trace tricuspid valve regurgitation. There is no evidence of pulmonary hypertension. Great Vessels The asc aorta is normal in size. Venous The inferior vena cava is normal in size and collapses greater than 50% with inspiration. Pericardium/Pleural There is no evidence of pericardial effusion. Prior Study Comparison No significant change compared to prior study dated: 11/23/2022. Measurements 2D Linear Measurements IVSd: 1.01 0.6-0.9/0.6-1.0 cm LVIDd: 4.19 3.9-5.3/4.2-5.9 cm LVIDd Index: 2.23 2.4-3.2/2.2-3.1 cm/m2 LVIDs: 2.63 2.0-3.6 cm LVPWd: 1.06 0.7-1.1 cm Ao Root: 3.00 2.1-3.5 cm LA Diam: 3.60 2.7-3.8/3.0-4.0 cm LAIDs Index: 1.91 1.5-2.3 cm/m2 LV Mass: 178.62 67-162/88-224 g LV Mass Index: 95.01 43-95/49-115 g/m2 LVOT Diam: 2.00 3.0+(-)1.3 cm 2D Systolic Function EF 4C: 55.10 >55% EF 2C: 59.20 >55% EF BiP: 55.50 >55% Mitral Valve MV Pk E: 0.69 MV PK A: 0.62 MV Decel Time: 301.00 E/A: 1.10 E'Lateral: 10.60 E'Medial: 6.42 E/E' Med: 10.70 E/E' Lat: 6.50 PHT: 88.00 MVA PHT: 2.50 Decel [place]: 2.29 Aortic Valve AoV Pk [place]: 2.56 AoV Mn [place]: 1.70 AoV VTI: 0.48 AoV Pk Grad: 26.00 Aov Mn Grad: 13.00 FERNANDA Cont.VTI: 1.73 AI Pk [place]: 4.17 AI [place]: 2.28 LVOT LVOT Pk [place]: 1.47 LVOT Mn [place]: 0.88 LVOT VTI: 0.27 LVOT Pk Grad: 9.00 LVOT Mn Grad: 4.00 LVOT Diam: 2.00 LVOT Area: 3.14 Diastolic Function MV Pk E: 0.69 MV Pk A: 0.62 E/A: 1.10 E'Medial: 6.42 E/E' Med: 10.70 E' Laterial: 10.60 E/E' Lat: 6.50 Right Ventricle TAPSE (mm): 28.10 TVS' [place]: 11.90 Tricuspid Valve TR Pk [place]: 2.36 TR Pk Grad: 22.00 RA Press: 3.00 RVSP: 25.00 Great Vessels Aorta Ao Root-2D: 3.00 2.0-3.7 cm Ao Asc: 3.30 2.1-3.4 cm Pulmonary Veins Pulm Vein S/D 1.50 Pulmonary Valve PV Pk [place]: 1.15 Peak PV Grad: 5.00 Updated in Other Vendor System with Status of Final Walter Rand MD electronically signed on 11/18/2024 10:32:28 AM with status of Final
--- OUTSIDE RECORDS SUMMARY | 2024-11-17 16:30 | XMS_ITS | Encounter Summary ---
Author Organization [employer] Address [address] [facility] [facility] [address] [place] [address] Care Team Providers Care Cube Cutter Name Role Phone Clem White MD Primary Care Prov ider Reason for Visit * Reason Onset Date Comments Referral 04/10/2023 Encounter Details Date Type Department Care Team ([facility] st Contact Info) Description 04/10/2023 Telephone [facility] MEDICINE [address] [place] [address] Clem White MD [address] [place] [address] Referral Social History Tobacco Use Types Packs/Day [...] from pt requesting renewal on referral for [facility] on [address], [place] [address], communications writer does not see any previous referral for that location, please contact pt for clarifications. documented in this encounter Plan of Treatment Not on file documented as of this encounter Visit Diagnoses Not on filedocumented in this encounter Additional Health Concerns Assessment Noted Time PHQ-9 Depression Total Score: 0 04/10/19 23 9:36 AM EST documented as of this encounter Care Teams Cube Cutter Relationship Specialty Start Date End Date Clem White MD [address] [place] [phone] PCP - General Internal Medicine 02/16/21 documented as of this encounter
--- OUTSIDE RECORDS SUMMARY | 2024-11-17 16:30 | XMS_ITS | Encounter Summary ---
Author Organization [employer] Address [address] [facility] [address] [place] [address] Care Team Providers Care Data Processing Systems Project Planner Name Role Phone Clem White MD Primary Care Prov ider Reason for Visit * Reason Onset Date Comments Appointment Request 04/10/2023 Encounter Details Date Type Department Care Team ([facility] st Contact Info) Description 04/10/2023 Telephone [facility] MEDICINE [address] [place] [address] Clem White MD [address] [place] [address] Appointment Request Social History Tobacco Use Types [...] documented as of this encounter Care Teams Data Processing Systems Project Planner Relationship Specialty Start Date End Date Clem White MD [address] [place] [phone] PCP - General Internal Medicine 02/16/21 documented as of this encounter
--- OUTSIDE RECORDS SUMMARY | 2024-11-17 16:30 | XMS_ITS | Encounter Summary ---
Author Organization [employer] Address [address] [facility] 7t [place] [address] Care Team Providers Care Director Council On Aging Name Role Phone Clem White MD Primary Care Prov ider Reason for Visit * Reason Onset Date Comments Medication Question 08/25/2024 Encounter Details Date Type Department Care Team ([facility] Contact Info) Description 08/25/2024 Telephone [facility] [address] [place], [place] [phone] Clem White MD [address] [place] [address] Medication Question Social History Tobacco Use Types [...] documented as of this encounter Care Teams Director Council On Aging Relationship Specialty Start Date End Date Clem White MD [address] [place] [phone] PCP - General Internal Medicine 02/16/21 documented as of this encounter
--- OUTSIDE RECORDS SUMMARY | 2024-11-17 16:30 | XMS_ITS | Encounter Summary ---
Author Organization [employer] Address [address] [facility] 7t [place] [address] Care Team Providers Care Air Traffic Control Operator Name Role Phone Clem White MD Primary Care Prov ider Reason for Visit * Reason Onset Date Comments Lab Orders 08/09/2023 Encounter Details Date Type Department Care Team ([facility] st Contact Info) Description 08/09/2023 Telephone [facility] MEDICINE [address] [place] [address] Clem White MD [address] [address] [place] [address] Lab Orders Social History Tobacco Use Types [...] test. Pt stated was advised by hospital, ad writer failedto verify what hospital. For further clarification please contact pt at [phone]. Polish Speaker documented in this encounter Plan of Treatment Not on file documented as of this encounter Visit Diagnoses Not on filedocumented in this encounter Additional Health Concerns Assessment Noted Time PHQ-9 Depression Total Score: 1 07/27/19 24 9:44 AM EDT documented as of this encounter Care Teams Air Traffic Control Operator Relationship Specialty Start Date End Date Clem White MD [address] [place] [phone] PCP - General Internal Medicine 02/16/21 documented as of this encounter
--- OUTSIDE RECORDS SUMMARY | 2024-11-17 16:30 | XMS_ITS | Encounter Summary ---
Author Organization [employer] Address [address] [facility] [address] [place] [address] Care Team Providers Care Sorter Operator Name Role Phone Clme White MD Primary Care Prov ider Reason for Visit * Reason Onset Date Comments Results 01/08/2024 Encounter Details Date Type Department Care Team ([facility] st Contact Info) Description 01/08/[address] [facility] MEDICINE [address] [place] [address] Clem White MD [address] [place] [address] Results Social History Tobacco Use Types Packs/Day [...] on lab done 01/02. Contact pt at [phone] documented in this encounter Plan of Treatment Not on file documented as of this encounter Visit Diagnoses Not on filedocumented in this encounter Additional Health Concerns Assessment Noted Time PHQ-9 Depression Total Score: 1 07/27/19 24 9:44 AM EDT documented as of this encounter Care Teams Sorter Operator Relationship Specialty Start Date End Date Clem White MD [address] [place] [phone] PCP - General Internal Medicine 02/16/21 documented as of this encounter
--- OUTSIDE RECORDS SUMMARY | 2024-11-17 16:30 | XMS_ITS | Clinical Summary ---
Author Organization [employer] Address [address] [facility] 7t [place] [address] Care Team Providers Care Computer Aided Design Drafter Name Role Phone Clem White MD Primary [...] Department Care Team Description 09/30/2024 Orders Only [facility] External Provider, [facility] 09/08/2024 Population Health Risk Score [facility] (C3) Department [address] [phone] Provider, Population Health Generic 08/25/2024 Refill [facility] [address] [place] [address] Clem White MD 08/25/2024 Telephone [facility] [address] [place] [address] Clem White MD Medication Question 08/21/2024 2:00 PM EDT Office Visit [facility] [address] [place] [address] Evans Poole MD Left lower quadrant abdominal pain (Primary Dx); Nonrheumatic aortic valve stenosis 08/21/2024 Travel 08/21/2024 Telephone [facility] [address] [place], [place] [phone] Clem White MD Nurse Triage from Last [...] Procedure Name Priority Date/Time Associated Diagnosis Comments BASIC METABOLIC PANEL Routine 11/07/2024 8:01 AM EDT Left lower quadrant abdominal pain XR KUB AND UPRIGHT 2 VIEWS Routine [...] Recently Relevant to Health Maintenance Results * (ABNORMAL) Basic Metabolic Panel (11/07/2024 8:01 AM EDT) Sodium 141 135 - 145 mmol/L [facility] Potassium 3.6 3.3 - 5.1 mmol/L [facility] Chloride 106 96 - 108 mmol/L [facility] Carbon Dioxide 28 22 - 29 mmol/L [facility] Anion Gap 11(L) 12 - 20 [facility] Urea Nitrogen (BUN) 17(H) 9 - 16 mg/dL [facility] Creatinine, Serum 0.89 0.5 - 1.4 mg/dL [facility] Estimated Glomerular Filt Rate >60 [facility] Comment:Chronic Kidney Disea se: Estimated GFR < 60 mL/min/1.50g1Qxrhxs Kidney Disease: Estimated GFR < 15 mL/min/1.73m2 Glucose 92 60 - 115 mg/dL [facility] Calcium 9.0 8.4 - 10.2 mg/dL [facility] Blood Venous blood specimen / Unknown 11/07/2024 8:01 AM EDT 11/07/2024 8:01 AM EDT us Evans Poole MD LAB BLOOD ORDERABLES Final Result [facility] [address] [place] [phone] * XR KUB and Upright 2 Views (09/30/2024 8:28 PM EDT) Anatomical Region Laterality Modality Radiographic Rosie ging 09/30/2024 8:28 PM EDT Narrative 09/30/2024 8:30 PM EDT [address] [address] XRay Report Signed Patient: Eugenio Franco MR#: [id number] : 1965 Acct:[id number] Age/Sex: 59 / M ADM Date: 09/30/24 Loc: HO.ED Attending Dr: Ordering Physician: Marlys Hart Date of Service: 09/30/24 Procedure(s): XR KUB Accession Number(s): [id number] cc: Clem White MD; Marlys Hart CLINICAL [...] in OV> 09/30/242028 DD/ 27 TD/TT: 09/30/242027 [facility]ate Of Chiropractic: Procedure Note Donotuseinterpreter, Image - 09/30/[address] [address] XRay Report Signed Patient: Eugenio FrancoMR#: Vashti [id number] : 1965Acct:[id number] Age/Sex: 59 / MADM Date: 09/30/24 Loc: HO.ED Attending Dr: Ordering Physician: Marlys Hart Date of Service: 09/30/24 Procedure(s): XR KUB Accession Number(s): [id number] cc: Clem White MD; Marlys Hart CLINICAL [...] in OV> 09/30/242028 DD/ 27 TD/TT: 09/30/242027 Doctorate Of Chiropractic: [facility] External Provider IMG XR PROCEDURES Final Result * (ABNORMAL) CBC auto differential (09/30/2024 5:35 PM EDT) White Blood Count 6.9 4.8 - 10.8 X10*3/uL [facility] Red Blood Count 4.90 4.60 - 5.80 X10*6/uL [facility] Hemoglobin 14.8 14.0 - 18.0 g/dl [facility] Hematocrit 42.7 42.0 - 52.0 % [facility] Mean Corpuscular Volume 87.1 80.0 - 98.0 fL [facility] Mean Corpuscular Hemoglobin 30.2 27.0 - 33.0 pg [facility] Mean Corpuscular HGB Conc 34.7 31.0 - 36.0 g/dl [facility] Red Cell Distribution Width 12.9 11.0 - 16.0 % [facility] Platelet Count 177 160 - 400 X10*3/uL [facility] Mean Platelet Volume 9.7 9.4 - 12.4 fL [facility] Neutrophils Percent Auto 73.3(H) 45 - 73 % [facility] Imm Gran Pct Auto 0.6(H) 0.0 - 0.4 % [facility] Lymphocytes Percent Auto 19.0(L) 20 - 40 % [facility] Monocytes Percent Auto 6.0 2 - 11 % [facility] Eosinophils Percent Auto 0.7 0 - 4 % [facility] Basophils Percent Auto 0.4 0 - 2 % [facility] NRBC Pct Auto 0.0 0.0 - 0.2 /100WBC [facility] Neutrophils Absolute Auto 5.1 2.0 - 8.3 x10*3/uL [facility] Imm Gran Abs Auto 0.04(H) 0.00 - 0.03 X10*3/uL [facility] Lymphocytes Absolute Auto 1.3 1.2 - 4.9 X10*3/uL [facility] Monocytes Absolute Auto 0.4 0.1 - 1.2 X10*3/uL [facility] Eosinophils Absolute Auto 0.1 0.0 - 0.4 X10*3/uL [facility] Basophils Absolute Auto 0.0 0.0 - 0.2 X10*3/uL [facility] NRBC Abs Auto 0.000 0.0 - 0.012 X10*3/uL [facility] 09/30/2024 5:35 PM EDT 09/30/2024 5:39 PM EDT Generic External Data Provider LAB BLOOD ORDERAB LES Final Result Performing Organization Address [facility]/ZIP Co de Phone Number [facility] [address] [place] [phone] * Lipase (09/30/2024 5:35 PM EDT) Pathologist [facility] Lipase 31 8 - 78 U/L [facility] 09/30/2024 5:35 PM EDT 09/30/2024 5:39 PM EDT Generic External Data Provider LAB BLOOD ORDERAB LES Final Result Performing Organization Address [facility] Co de Phone Number [facility] [address] [place] [phone] * (ABNORMAL) Comprehensive Metabolic Panel (09/30/2024 5:35 PM EDT) Pathologist [facility] Sodium 146(H) 135 - 145 mmol/L [facility] Potassium 4.2 3.3 - 5.1 mmol/L [facility] Chloride 109(H) 96 - 108 mmol/L [facility] Carbon Dioxide 29 22 - 29 mmol/L [facility] Anion Gap 12 12 - 20 [facility] Urea Nitrogen (BUN) 17(H) 9 - 16 mg/dL [facility] Creatinine, Serum 0.98 0.5 - 1.4 mg/dL [facility] Creatinine Clr Calc Pharmacy 77.0 [facility] Comment:eGFR (calculated fro m the MDRD study equation) and eCrCl(calculated from the Cockcroft-Gault equation) are based ondifferent parameters and may not yield comparable results.If eCrCl result is absurd, please check patient'sheight/weight. Estimated Glomerular Filt Rate >60 [facility] Comment:Chronic Kidney Disea se: Estimated GFR < 60 mL/min/1.26p7Surifm Kidney Disease: Estimated GFR < 15 mL/min/1.73m2 Glucose 157(H) 60 - 115 mg/dL [facility] Calcium 9.3 8.4 - 10.2 mg/dL [facility] Bilirubin, Total 0.3 0.0 - 1.0 mg/dL [facility] Aspartate Amino Transferase 30 5 - 37 U/L [facility] Alanine Aminotransferase 32 0 - 40 U/L [facility] Total Protein 6.6 6.5 - 8.0 g/dL [facility] Albumin Level 4.2 3.5 - 5.0 g/dL [facility] Alkaline Phosphatase 67 39 - 117 U/L [facility] 09/30/2024 5:35 PM EDT 09/30/2024 5:39 PM EDT us Generic External Data Provider LAB BLOOD ORDERAB LES Final Result [facility] [address] [place] [phone] [phone] * CT Lung Screening Low dose (02/14/2024 11:12 AM EST) Anatomical Region Laterality Modality Lung Computed Tomogra phy 02/14/2024 11:1 2 AM EST Narrative 03/19/2024 10:[address] [address] [address] Scan Report Signed Patient: Eugenio Franco MR#: [id number] : 1965 Acct:[id number] Age/Sex: 58 / M ADM Date: 02/14/24 Loc: HO.CT Attending Dr: Georgia Gutierrez PA-C Ordering Physician: Georgia Gutierrez PA-C Date of Service: 02/14/24 Procedure(s): CT lung screening Accession Number(s): [id number] cc: Clem White MD; Georgia Gutierrez PA-C Report Number: [id number]: Total DLP = 55.00 mGy-cm EXAMINATION: CT [...] by: Jude Mendoza MD 03/19/2024 10:13 AM [facility] Dictated By: Jude Mendoza MD Signed By: <Electronically signed by Jude Mendoza MD in OV> 03/19/24 1013 DD/ 1112 TD/TT: 02/14/24 1127 Doctorate Of Chiropractic: [facility] Procedure Note Donotuseinterpreter, Image - 03/19/[address] [place] [address] [address] Scan Report Signed Patient: Lily Franco#: M [id number] : 1965Acct:[id number] Age/Sex: 58 / MADM Date: 02/14/24 Loc: HO.CT Attending Dr: Georgia Gutierrez PA-C Ordering Physician: Georgia Gutierrez PA-C Date of Service: 02/14/24 Procedure(s): CT lung screening Accession Number(s): [id number] cc: Clem White MD; Georgia Gutierrez PA-C Report Number: [id number]: Total DLP = 55.00 mGy-cm EXAMINATION: CT [...] by: Jude Mendoza MD 03/19/2024 10:13 AM [facility] Dictated By: Jude Mendoza MD Signed By: <Electronically signed by Jude Mendoza MD in OV> 03/19/24 1013 DD/ 1112 TD/TT: 02/14/24 1127 Doctorate Of Chiropractic: [facility] External Provider IMG CT PROCEDURES Edited Result - Final * (ABNORMAL) Lipid Panel, Standard (01/03/2024 7:00 AM EDT) Triglycerides 90 <150 mg/dL [facility] Comment:Desirable Triglyceri de: less than 150 mg/dLBorderline High Triglyceride 150-199 mg/dLHigh Triglyceride: 200-499 mg/dLVery High Triglyceride: greater than or equal to 5OO mg/dL Cholesterol 137 <200 mg/dL [facility] Comment:Desirable Cholestero l: less than 200 mg/dLBorderline High Cholesterol: 200-239 mg/dLHigh Cholesterol: greater than 239 mg/dL LDL Cholesterol Calculated 87 <100 mg/dL [facility] Comment:Desirable LDL: less than 100 mg/dLNear Optimal/Above Optimal LDL: 110- 129 mg/dLBorderline High LDL: 130-159 mg/dLHigh LDL: 160-189 mg/dLVery High LDL: greater than or equal to 190 mg/dL HDL Cholesterol 32(L) >40 mg/dL [facility] Comment:Desirable HDL: great er than 40 mg/dL Note: This HDL assay may give artificially low results in patients with liver disease. Blood Venous blood specimen / Unknown 01/03/2024 7:00 AM EDT 01/03/2024 7:01 AM EDT us Clem Smith MD LAB BLOOD ORDERABL ES Final Result [facility] [address] [place] [phone] * HIV-1 RNA, Quantitative, Real-Time PCR with Reflex to Genotype (RTI, PI, Integrase) (04/10/2022 10:08 AM EST) HIV 1 RNA, QN PCR NOT DETECTED copies/mL [facility] [employer] [facility], HIV 1 RNA, QN PCR NOT DETECTED Log copies/mL [facility] [facility], Comment: REFERENCE RANGE: NOT DETECTED copies/mL NOT DETECTED Log copies/mL This test was performed using Real-Time Polymerase Chain Reaction. Reportable range is 20 to 10,000,000 copies/mL (1.30-7.00 Log copies/mL). 04/10/2022 10:0 8 AM EST 04/10/2022 10:09 AM EST Narrative [facility] - 04/13/2022 11:15 PM EST FASTING:YES FASTING: YES Clem Smith MD LAB BLOOD ORDERABL ES Final Result Performing Organization Address [facility]/ZIP Co de Phone Number [facility] [address] [place] [address], [place] [address] [employer], [address] [place] [phone] * Hepatitis C Antibody with Reflex to HCV, RNA, Quantitative, Real-Time PCR (04/10/2022 10:08 AM EST) Hepatitis C Antibody NON-REACT LIDYA NON-REACT LIDYA [employer] Index <0.02 <1.00 [employer] Comment: HCV antibody was non-reactive. There is no laboratory evidence of HCV infection. In most cases, no further action is required. However, if recent HCV exposure is suspected, a test for HCV RNA (test code 92026) is suggested. For additional information please refer to http://education.[employer]/faq/AQL90j9 (This link is being provided for informational/ educational purposes only.) Blood Venous blood specimen / Unknown 04/10/2022 10:08 AM EST 04/10/2022 10:09 AM EST Narrative [facility] - 04/13/2022 11:15 PM EST FASTING:YES FASTING: YES Clem Smith MD LAB BLOOD ORDERABL ES Final Result Performing Organization Address [facility]/ZIP Co de Phone Number [address], [place] [address] [employer] [address] [place] [address], (Nl2) [place] [address] * Hm Colonoscopy (03/31/2020 12:19 PM EST) us Historical Provider HEALTH MAINTENANCE Final Result from Last 3 Months or Most Recently Relevant to Health Maintenance Insurance [facility] C3 Care Teams Computer Aided Design Drafter Relationship Specialty Start Date End Date Clem White MD [address] [place] [phone] PCP - General Internal Medicine 02/16/21
--- OUTSIDE RECORDS SUMMARY | 2024-11-17 16:30 | XMS_ITS | Encounter Summary ---
Author Organization [employer] Address [address] 7t [place] [address] Care Team Providers Care Computer Repair Instructor Name Role Phone Clem White MD Primary Care Prov ider Encounter Details Date Type Department Care Team (Late st Contact Info) Description 04/10/2023 Telephone [facility] MEDICINE 230 [place] [address] Clem White MD [address] [place] [address] Social History Tobacco Use Types Packs/Day Years [...] documented as of this encounter Care Teams Computer Repair Instructor Relationship Specialty Start Date End Date Clem White MD [address] [place] [phone] PCP - General Internal Medicine 02/16/21 documented as of this encounter
--- OUTSIDE RECORDS SUMMARY | 2024-11-17 16:30 | XMS_ITS | Encounter Summary ---
Author Organization [employer] Address [address] 7t [place] [address] Care Team Providers Care An/Ssn 2 4 Operator Name Role Phone Clem White MD Primary Care Prov ider Encounter Details Date Type Department Care Team ([facility] st Contact Info) Description 10/31/2023 Telephone [facility] CH[facility] MED & PEDS [address] [place], [place] [phone] Clem White MD 505 [place] [address] Social History Tobacco Use Types Packs/Day Years [...] labs, also that he missed appointment for [facility] Lung screening and they told him he [...] documented as of this encounter Care Teams An/Ssn 2 4 Operator Relationship Specialty Start Date End Date Clem White MD [address] [place] [phone] PCP - General Internal Medicine 02/16/21 documented as of this encounter
--- OUTSIDE RECORDS SUMMARY | 2024-11-17 16:30 | XMS_ITS | Encounter Summary ---
Author Organization [employer] Address [address] 7t [place] [address] Care Team Providers Care Oil And Gas Well Treatment Operator Name Role Phone Clem White MD Primary Care Prov ider Reason for Visit * Reason Onset Date Comments Results 01/13/2024 Encounter Details Date Type Department Care Team ([facility] st Contact Info) Description 01/13/2024 Telephone [facility] MEDICINE 230 [place] [address] Clem White MD [address] [place] [address] Results Social History Tobacco Use Types Packs/Day [...] documented as of this encounter Care Teams Oil And Gas Well Treatment Operator Relationship Specialty Start Date End Date Clem White MD 505 [place] [address] PCP - General Internal Medicine 02/16/21 documented as of this encounter
--- OUTSIDE RECORDS SUMMARY | 2024-11-17 16:30 | XMS_ITS | Encounter Summary ---
Author Organization [employer] Address [address] 7t [place] [address] Care Team Providers Care Dental Nurse Name Role Phone Clem White MD Primary Care Prov ider Encounter Details Date Type Department Care Team (Late st Contact Info) Description 06/14/2023 Orders Only [facility] MEDICINE 230 [place], [place] [phone] ProviderPrabhu MD Social History Tobacco Use Types [...] documented as of this encounter Care Teams Dental Nurse Relationship Specialty Start Date End Date DeniseClem Velazquez MD [address] [place] [phone] PCP - General Internal Medicine 02/16/21 documented as of this encounter
== END ==
LOC: HO.CARD 12:28
PROVIDERS: PCP Internal Medicine; Visit Provider Internal Medicine
DX: I35.0 Nonrheumatic aortic (valve) stenosis (principal)
CPT/HCPCS: 93306

== ENCOUNTER → 2024-11-17 12:30 | Outpatient (BNV) | payer MEDICAID, SELFPAY | PROVIDERS: PCP Internal Medicine; Visit Provider Internal Medicine | DX: I35.0 Nonrheumatic aortic (valve) stenosis (principal) | CPT/HCPCS: 93306 ==

== ENCOUNTER 2024-11-27 06:44 | Outpatient (REF) | payer MEDICAID, SELFPAY ==
--- NOTE | ~2024-11-27 | CT_ITS ---
EXAMINATION: CT ABDOMEN AND PELVIS WITH CONTRAST CLINICAL INFORMATION: Concerning left inguinal hernia. COMPARISON: None available. TECHNIQUE: Multidetector volumetric images were obtained from the superior aspect of the liver through the pubic symphysis following administration 85 mL of Omnipaque 350 intravenous contrast. Sagittal and coronal reformatted images were obtained on the technologist's workstation. Oral contrast: Yes This CT examination was performed using dose optimization techniques as appropriate, variously including the following: *Automated exposure control *Adjustment of mA and/or kV according to patient size (this includes techniques or standardized protocols for targeted exams where dose is matched to indication/reason for exam; i.e. extremities or head) *Use of iterative reconstruction technique DLP: 485 mGy centimeter. FINDINGS: LUNG BASES: No acute airspace disease or discrete pulmonary nodule. LIVER, GALLBLADDER, AND BILIARY TREE: Liver measures 15 cm. Punctate calcifications in the right hepatic lobe. There is a subtle nodularity of the liver surface. No gross focal mass. Main portal veins, hepatic veins and intrahepatic portion of the IVC are patent. Gallbladder is contracted without pericholecystic fluid collection or gallbladder wall thickening. Common bile duct measures 4 mm. PANCREAS: No focal mass. No peripancreatic fluid collection. No main pancreatic ductal dilatation. SPLEEN: 10 cm. No focal mass. ADRENAL GLANDS: No nodular lesions. KIDNEYS AND URETERS: No hydronephrosis. No gross nephrolithiasis. Normal enhancement pattern of the renal cortex. No gross renal mass. BLADDER: Fluid-filled with questionable wall thickening. GASTROINTESTINAL TRACT: Fecal material in the distal ileal loops. Abundant stool throughout the large intestine. No intestinal obstruction pattern. No pneumatosis intestinalis. I do not see the appendix. Scattered diverticula in the left hemicolon mostly in the sigmoid colon. Small hiatal hernia. No pneumoperitoneum. No ascites. No peripheral enhancing fluid collection, peritoneal cavity. ABDOMINAL WALL: Small fat-containing umbilical hernia. There is a 3 cm abdominal wall defect within the lateral aspect of the abdomen wall just below the left 11th rib between the transversalis and the oblique muscles. No gross inguinal hernia. LYMPH NODES: No specific prominent less than 9 mm retroperitoneum lymph nodes. VASCULAR: Mixed plaques in the abdominal aorta wall and iliac arteries without aneurysm or dissection. PELVIC VISCERA: Not enlarged. OSSEOUS STRUCTURES: Multilevel thoracolumbar spondylosis without gross acute fracture or listhesis. Degenerative changes in the sacroiliac joints and coxofemoral joints, mild to moderate. Exostosis at the iliac crest, left greater than the right side. CT/CT abdomen pelvis w IV con IMPRESSION: Left lateral fat-containing abdominal wall defect below the left 11th rib. Small fat-containing umbilical hernia. Diverticular disease, left hemicolon. Fleischner guidelines were followed. Electronically signed by: Adrian Carlos MD 11/27/2024 09:40 AM EDT
--- OUTSIDE RECORDS SUMMARY | 2024-11-27 06:47 | XMS_ITS | Encounter Summary ---
Author Organization [employer] Address [address] [place] [address] 7t [place] [address] Care Team Providers Care Nuisance Wildlife Specialist Name Role Phone Clem White MD Primary Care Prov ider Reason for Referral * Imaging (Routine) - Pending Review Specialty Diagnoses / Procedures Referred By Leena marie Referred To Contact Radiology Diagnoses Left lower quadrant abdominal pain Procedures CT Abdomen Pelvis w/ Contrast Evans Poole MD 505 [place] [address] Phone: tel: fax: Referral ID Status Reason Start Date Expiration Date V isits Requested Visits Authorized [id number] Pending Review 11/26/2024 11/26/2025 1 1 Encounter Details Date Type Department Care Team ([facility] Contact Info) Description 11/26/2024 Orders Only [facility] CHC MED & PEDS 505 [place] [address] Evans Poole MD 505 [place] [address] Left lower quadrant abdominal pain (Primary Dx) Social History Tobacco Use Types Packs/Day Years [...] as of this encounter Plan of Treatment Scheduled Orders Name Type Priority Associated Diagnoses Orde r Schedule CT Abdomen Pelvis w/ Contrast Imaging Routine Left lower quadrant abdominal pain Expected: 11/26/2024, Expires: 11/26/2025 documented as of this encounter Visit Diagnoses Diagnosis Left lower quadrant abdominal pain- Primary documented in this encounter Additional Health Concerns Assessment Noted Time PHQ-9 Depression Total Score: 1 07/27/19 24 9:44 AM EDT documented as of this encounter Care Teams Nuisance Wildlife Specialist Relationship Specialty Start Date End Date Clem White MD [address] [place] [address] PCP - General Internal Medicine 02/16/21 documented as of this encounter
--- OUTSIDE RECORDS SUMMARY | 2024-11-27 06:47 | XMS_ITS | Encounter Summary ---
Author Organization [employer] Address [address] 7t [place] [address] Care Team Providers Care Sales Vendor Name Role Phone Clem White MD Primary Care Prov ider Encounter Details Date Type Department Care Team ([facility] st Contact Info) Description 10/31/2023 Telephone [facility] CHC MED & PEDS 505 [place], [place] [phone] Clem White MD 505 [place] [address] Social History Tobacco Use Types Packs/Day Years [...] labs, also that he missed appointment for [facility] Lung screening and they told him [...] documented as of this encounter Care Teams Sales Vendor Relationship Specialty Start Date End Date Clem White MD [address] [place] [phone] PCP - General Internal Medicine 02/16/21 documented as of this encounter
--- OUTSIDE RECORDS SUMMARY | 2024-11-27 06:47 | XMS_ITS | Encounter Summary ---
Author Organization [employer] Address [address] 7t [place] [address] Care Team Providers Care Communications Equipment Installer Name Role Phone Clem White MD Primary Care Prov ider Reason for Visit * Reason Onset Date Comments Results 01/08/2024 Encounter Details Date Type Department Care Team ([facility] st Contact Info) Description 01/08/2024 Telephone [facility] MEDICINE 230 [place] [address] Clem White MD [address] [place] [address] Results Social History Tobacco Use Types Packs/Day [...] on lab done 01/02. Contact pt at [phone] documented in this encounter Plan of Treatment Not on file documented as of this encounter Visit Diagnoses Not on filedocumented in this encounter Additional Health Concerns Assessment Noted Time PHQ-9 Depression Total Score: 1 07/27/19 24 9:44 AM EDT documented as of this encounter Care Teams Communications Equipment Installer Relationship Specialty Start Date End Date Clem White MD [address] [place] [phone] PCP - General Internal Medicine 02/16/21 documented as of this encounter
--- OUTSIDE RECORDS SUMMARY | 2024-11-27 06:47 | XMS_ITS | Encounter Summary ---
Author Organization [employer] Address [address] [facility] 7t [place] [address] Care Team Providers Care Fiber Picker Name Role Phone Clem White MD Primary Care Prov ider Reason for Visit * Reason Onset Date Comments Medication Question 08/25/2024 Encounter Details Date Type Department Care Team ([facility] Contact Info) Description 08/25/2024 Telephone C CHC MED & PEDS 505 [place], [place] [phone] Clem Whtie MD 505 [place] [address] Medication Question Social History Tobacco Use Types [...] documented as of this encounter Care Teams Fiber Picker Relationship Specialty Start Date End Date Clem White MD [address] [place] [phone] PCP - General Internal Medicine 02/16/21 documented as of this encounter
--- OUTSIDE RECORDS SUMMARY | 2024-11-27 06:47 | XMS_ITS | Encounter Summary ---
Author Organization [employer] Address [address] [facility] 7t [place] [address] Care Team Providers Care Senior Data Analyst Name Role Phone Clem White MD Primary Care Prov ider Reason for Visit * Reason Onset Date Comments Lab Orders 08/09/2023 Encounter Details Date Type Department Care Team ([facility] st Contact Info) Description 08/09/2023 Telephone [facility] MEDICINE 230 [place] [address] Clem White MD [address] [address] Lab Orders Social History Tobacco Use Types [...] test. Pt stated was advised by hospital, property underwriter failedto verify what hospital. For further clarification please contact pt at [phone]. Omani Speaker documented in this encounter Plan of Treatment Not on file documented as of this encounter Visit Diagnoses Not on filedocumented in this encounter Additional Health Concerns Assessment Noted Time PHQ-9 Depression Total Score: 1 07/27/19 24 9:44 AM EDT documented as of this encounter Care Teams Senior Data Analyst Relationship Specialty Start Date End Date Clem White MD [address] [place] [phone] PCP - General Internal Medicine 02/16/21 documented as of this encounter
--- OUTSIDE RECORDS SUMMARY | 2024-11-27 06:47 | XMS_ITS | Encounter Summary ---
Author Organization [employer] Address [address] 7t [place] [address] Care Team Providers Care Rf Test Engineer Name Role Phone Clem White MD Primary Care Prov ider Encounter Details Date Type Department Care Team (Late st Contact Info) Description 06/14/2023 Orders Only [facility] MEDICINE 230 [place], [place] [phone] ProviderPrabhu MD Social History Tobacco Use Types [...] documented as of this encounter Care Teams Rf Test Engineer Relationship Specialty Start Date End Date DeniseClem Velazquez MD [address] [place] [address] PCP - General Internal Medicine 02/16/21 documented as of this encounter
--- OUTSIDE RECORDS SUMMARY | 2024-11-27 06:47 | XMS_ITS | Clinical Summary ---
Author Organization [employer] Address [address] [facility] 7t [place] [address] Care Team Providers Care Senior Sql Database Developer Name Role Phone Clem White MD Primary [...] Encounters Date Type Department Care Team Description 11/26/2024 Orders Only [facility] MED & PEDS 505 [place] [address] Evans Poole MD Left lower quadrant abdominal pain (Primary Dx) 11/24/2024 Telephone [facility] MED & PEDS 505 [place] [address] Evans Poole MD Results 09/30/2024 Orders Only [facility] External Provider, [facility] 09/08/2024 Population Health Risk Score [facility] Department [address] [phone] Provider, Population Health Generic from Last 3 Months Immunizations Immunization Administration Dates Next Due Influenza injectable quadriv alent IIV4 with preservative 04/10/2022 Influenza, seasonal, injectable, preservative fr ee 12/27/2023 Pfizer Covid-19 Vaccine 12+ 12/27/2023 Tdap 04/10/2022 Social History Tobacco Use Types Packs/Day Years Used Date Smoking Tobacco: Former Cigarettes 0.5 41 1 - 2020 Passive Smoke Exposure: Past Smokeless [...] EDT) Sodium 141 135 - 145 mmol/L [facility] Potassium 3.6 3.3 - 5.1 mmol/L [facility] Chloride 106 96 - 108 mmol/L [facility] Carbon Dioxide 28 22 - 29 mmol/L [facility] Anion Gap 11(L) 12 - 20 [facility] Urea Nitrogen (BUN) 17(H) 9 - 16 mg/dL [facility] Creatinine, Serum 0.89 0.5 - 1.4 mg/dL [facility] Estimated Glomerular Filt Rate >60 [facility] Comment:Chronic Kidney Disea se: Estimated GFR < 60 mL/min/1.49p9Cwfhym Kidney Disease: Estimated GFR < 15 mL/min/1.73m2 Glucose 92 60 - 115 mg/dL [facility] Calcium 9.0 8.4 - 10.2 mg/dL [facility] Blood Venous blood specimen / Unknown 11/07/2024 8:01 AM EDT 11/07/2024 8:01 AM EDT us Evans Poole MD LAB BLOOD ORDERABLES Final Result [facility] [address] [place] [phone] * XR KUB and Upright 2 Views (09/30/2024 8:28 PM EDT) Anatomical Region Laterality Modality Radiographic Rosie ging 09/30/2024 8:28 PM EDT Narrative 09/30/2024 8:30 PM EDT [address] [address] XRay Report Signed Patient: Eugenio Franco MR#: [id number] : 1965 Acct:[id number] Age/Sex: 59 / M ADM Date: 09/30/24 Loc: HO.ED Attending Dr: Ordering Physician: Marlys Hart Date of Service: 09/30/24 Procedure(s): XR KUB Accession Number(s): [id number] cc: Clem White MD; Marlys Hart CLINICAL [...] in OV> 09/30/242028 DD/ 27 TD/TT: 09/30/242027 Electrical System Specialist: Procedure Note Donotuseinterpreter, Image - 09/30/2024 [place] [address] XRay Report Signed Patient: Lily Franco#: M [id number] : 1965Acct:[id number] Age/Sex: 59 / MADM Date: 09/30/24 Loc: HO.ED Attending Dr: Ordering Physician: Marlys Hart Date of Service: 09/30/24 Procedure(s): XR KUB Accession Number(s): [id number] cc: Clem White MD; Marlys Hart CLINICAL [...] in OV> 09/30/242028 DD/ 27 TD/TT: 09/30/242027 Electrical System Specialist: [facility] External Provider IMG XR PROCEDURES Final Result * (ABNORMAL) CBC auto differential (09/30/2024 5:35 PM EDT) White Blood Count 6.9 4.8 - 10.8 X10*3/uL [facility] Red Blood Count 4.90 4.60 - 5.80 X10*6/uL [facility] Hemoglobin 14.8 14.0 - 18.0 g/dl [facility] Hematocrit 42.7 42.0 - 52.0 % [facility] Mean Corpuscular Volume 87.1 80.0 - 98.0 fL [facility] Mean Corpuscular Hemoglobin 30.2 27.0 - 33.0 pg [facility] Mean Corpuscular HGB Conc 34.7 31.0 - 36.0 g/dl [facility] Red Cell Distribution Width 12.9 11.0 - 16.0 % [facility] Platelet Count 177 160 - 400 X10*3/uL [facility] Mean Platelet Volume 9.7 9.4 - 12.4 fL [facility] Neutrophils Percent Auto 73.3(H) 45 - 73 % [facility] Imm Gran Pct Auto 0.6(H) 0.0 - 0.4 % [facility] Lymphocytes Percent Auto 19.0(L) 20 - 40 % [facility] Monocytes Percent Auto 6.0 2 - 11 % [facility] Eosinophils Percent Auto 0.7 0 - 4 % [facility] Basophils Percent Auto 0.4 0 - 2 % [facility] NRBC Pct Auto 0.0 0.0 - 0.2 /100WBC [facility] Neutrophils Absolute Auto 5.1 2.0 - 8.3 x10*3/uL [facility] Imm Gran Abs Auto 0.04(H) 0.00 - 0.03 X10*3/uL [facility] Lymphocytes Absolute Auto 1.3 1.2 - 4.9 X10*3/uL [facility] Monocytes Absolute Auto 0.4 0.1 - 1.2 X10*3/uL [facility] Eosinophils Absolute Auto 0.1 0.0 - 0.4 X10*3/uL [facility] Basophils Absolute Auto 0.0 0.0 - 0.2 X10*3/uL [facility] NRBC Abs Auto 0.000 0.0 - 0.012 X10*3/uL [facility] 09/30/2024 5:35 PM EDT 09/30/2024 5:39 PM EDT us Generic External Data Provider LAB BLOOD ORDERAB LES Final Result [facility] [address] [place] [phone] * Lipase (09/30/2024 5:35 PM EDT) [facility] Lipase 31 8 - 78 U/L [facility] 09/30/2024 5:35 PM EDT 09/30/2024 5:39 PM EDT Generic External Data Provider LAB BLOOD ORDERAB LES Final Result Performing Organization Address City/[facility]/ZIP Co de Phone Number [facility] [address] [place] [phone] * (ABNORMAL) Comprehensive Metabolic Panel (09/30/2024 5:35 PM EDT) Pathologist [facility] Sodium 146(H) 135 - 145 mmol/L [facility] Potassium 4.2 3.3 - 5.1 mmol/L [facility] Chloride 109(H) 96 - 108 mmol/L [facility] Carbon Dioxide 29 22 - 29 mmol/L [facility] Anion Gap 12 12 - 20 [facility] Urea Nitrogen (BUN) 17(H) 9 - 16 mg/dL [facility] Creatinine, Serum 0.98 0.5 - 1.4 mg/dL [facility] Creatinine Clr Calc Pharmacy 77.0 [facility] Comment:eGFR (calculated fro m the MDRD study equation) and eCrCl(calculated from the Cockcroft-Gault equation) are based ondifferent parameters and may not yield comparable results.If eCrCl result is absurd, please check patient'sheight/weight. Estimated Glomerular Filt Rate >60 [facility] Comment:Chronic Kidney Disea se: Estimated GFR < 60 mL/min/1.99k3Wfqazy Kidney Disease: Estimated GFR < 15 mL/min/1.73m2 Glucose 157(H) 60 - 115 mg/dL [facility] Calcium 9.3 8.4 - 10.2 mg/dL [facility] Bilirubin, Total 0.3 0.0 - 1.0 mg/dL [facility] Aspartate Amino Transferase 30 5 - 37 U/L [facility] Alanine Aminotransferase 32 0 - 40 U/L [facility] Total Protein 6.6 6.5 - 8.0 g/dL [facility] Albumin Level 4.2 3.5 - 5.0 g/dL [facility] Alkaline Phosphatase 67 39 - 117 U/L [facility] 09/30/2024 5:35 PM EDT 09/30/2024 5:39 PM EDT us Generic External Data Provider LAB BLOOD ORDERAB LES Final Result Performing Organization Address City/State/[facility] Co de Phone Number [facility] [address] [place] [phone] * CT Lung Screening Low dose (02/14/2024 11:12 AM EST) Anatomical Region Laterality Modality Lung Computed Tomogra phy 02/14/2024 11:1 2 AM EST Narrative 03/19/2024 10:16 AM EST [address] [address] [address] Scan Report Signed Patient: Eugenio Franco MR#: M [id number] : 1965 Acct:[id number] Age/Sex: 58 / M ADM Date: 02/14/24 Loc: HO.CT Attending Dr: Georgia Gutierrez PA-C Ordering Physician: May,Georgia M PA-C Date of Service: 02/14/24 Procedure(s): CT lung screening Accession Number(s): [id number] cc: Clem White MD; Georgia Gutierrez PA-C Report Number: [id number]: Total DLP = 55.00 mGy-cm EXAMINATION: CT [...] by: Jude Mendoza MD 03/19/2024 10:13 AM EST Dictated By: Jude Mendoza MD Signed By: <Electronically signed by Jude Mendoza MD in OV> 03/19/24 1013 DD/ 1112 TD/TT: 02/14/24 1127 Electrical System Specialist: [facility] Procedure Note Donotuseinterpreter, Image - 03/19/[address] [place] [address] [address] Scan Report Signed Patient: Lily Franco#: M [id number] : 1965Acct:[id number] Age/Sex: 58 / MADM Date: 02/14/24 Loc: HO.CT Attending Dr: Georgia Gutierrez PA-C Ordering Physician: Georgia Gutierrez PA-C Date of Service: 02/14/24 Procedure(s): CT lung screening Accession Number(s): [id number] cc: Clem White MD; Georgia Gutierrez PA-C Report Number: [id number]: Total DLP = 55.00 mGy-cm EXAMINATION: CT [...] by: Jude Mendoza MD 03/19/2024 10:13 AM [facility] Dictated By: Jude Mendoza MD Signed By: <Electronically signed by Jude Mendoza MD in OV> 03/19/24 1013 DD/ 1112 TD/TT: 02/14/24 1127 Electrical System Specialist: [facility] External Provider IMG CT PROCEDURES Edited Result - Final * (ABNORMAL) Lipid Panel, Standard (01/03/2024 7:00 AM EDT) Triglycerides 90 <150 mg/dL [facility] Comment:Desirable Triglyceri de: less than 150 mg/dLBorderline High Triglyceride 150-199 mg/dLHigh Triglyceride: 200-499 mg/dLVery High Triglyceride: greater than or equal to 5OO mg/dL Cholesterol 137 <200 mg/dL [facility] Comment:Desirable Cholestero l: less than 200 mg/dLBorderline High Cholesterol: 200-239 mg/dLHigh Cholesterol: greater than 239 mg/dL LDL Cholesterol Calculated 87 <100 mg/dL [facility] Comment:Desirable LDL: less than 100 mg/dLNear Optimal/Above Optimal LDL: 110- 129 mg/dLBorderline High LDL: 130-159 mg/dLHigh LDL: 160-189 mg/dLVery High LDL: greater than or equal to 190 mg/dL HDL Cholesterol 32(L) >40 mg/dL [facility] Comment:Desirable HDL: great er than 40 mg/dL Note: This HDL assay may give artificially low results in patients with liver disease. Blood Venous blood specimen / Unknown 01/03/2024 7:00 AM EDT 01/03/2024 7:01 AM EDT Clem Smith MD LAB BLOOD ORDERABL ES Final Result [facility] [address] [place] [phone] * HIV-1 RNA, Quantitative, Real-Time PCR with Reflex to Genotype (RTI, PI, Integrase) (04/10/2022 10:08 AM EST) Pathologist [facility] HIV 1 RNA, QN PCR NOT DETECTED copies/mL [facility]/N [facility], HIV 1 RNA, QN PCR NOT DETECTED Log copies/mL [facility], Comment: REFERENCE RANGE: NOT DETECTED copies/mL NOT DETECTED Log copies/mL This test was performed using Real-Time Polymerase Chain Reaction. Reportable range is 20 to 10,000,000 copies/mL (1.30-7.00 Log copies/mL). 04/10/2022 10:0 8 AM EST 04/10/2022 10:09 AM EST Narrative [facility] - 04/13/2022 11:15 PM EST FASTING:YES FASTING: YES Clem Smith MD LAB BLOOD ORDERABL ES Final Result Performing Organization Address [facility] Co de Phone Number SHARON [address] [place] [address], [facility] [place] [phone] [employer], [address] [place] [address] * Hepatitis C Antibody with Reflex to HCV, RNA, Quantitative, Real-Time PCR (04/10/2022 10:08 AM EST) Hepatitis C Antibody NON-REACT LIDYA NON-REACT LIDYA [employer] [facility] Index <0.02 <1.00 [facility] [facility] Comment: HCV antibody was non-reactive. There is no laboratory evidence of HCV infection. In most cases, no further action is required. However, if recent HCV exposure is suspected, a test for HCV RNA (test code 05923) is suggested. For additional information please refer to http://education.Fleecs/faq/DOZ60c9 (This link is being provided for informational/ educational purposes only.) Blood Venous blood specimen / Unknown 04/10/2022 10:08 AM EST 04/10/2022 10:09 AM EST Narrative [facility] - 04/13/2022 11:15 PM EST FASTING:YES FASTING: YES Clem Smith MD LAB BLOOD ORDERABL ES Final Result Performing Organization Address [facility] Co de Phone Number SHARON [address] [place] [address], [facility] [place] [phone] [employer] [facility], (N[address]) [place] [address] * Hm Colonoscopy (03/31/2020 12:19 PM EST) Prabhu Villalpando MD HEALTH MAINTENANCE Final Result from Last 3 Months or Most Recently Relevant to Health Maintenance Insurance [facility] C3 Care Teams Senior Sql Database Developer Relationship Specialty Start Date End Date Clem White MD [address] [place] [address] [place] [address] PCP - General Internal Medicine 02/16/21
--- OUTSIDE RECORDS SUMMARY | 2024-11-27 06:47 | XMS_ITS | Encounter Summary ---
Author Organization [employer] Address [address] [place] [address] Care Team Providers Care Patternator Name Role Phone Clem White MD Primary Care Prov ider Reason for Visit * Reason Onset Date Comments Results 01/13/2024 Encounter Details Date Type Department Care Team ([facility] st Contact Info) Description 01/13/2024 Telephone [facility] MEDICINE [address] [place] [address] Clem White MD [address] [place] [address] Results Social History Tobacco Use Types Packs/Day [...] documented as of this encounter Care Teams Patternator Relationship Specialty Start Date End Date Clem White MD [address] [place] [address] PCP - General Internal Medicine 02/16/21 documented as of this encounter
--- OUTSIDE RECORDS SUMMARY | 2024-11-27 06:47 | XMS_ITS | Encounter Summary ---
Author Organization [employer] Address [address] [place] [address] Care Team Providers Care Manager Integrity Name Role Phone Clem White MD Primary Care Prov ider Reason for Visit * Reason Onset Date Comments Appointment Request 04/10/2023 Encounter Details Date Type Department Care Team ([facility] st Contact Info) Description 04/10/2023 Telephone [facility] MEDICINE [address] [place] [address] Clem White MD [address] [place] [address] Appointment Request Social History Tobacco Use Types [...] documented as of this encounter Care Teams Manager Integrity Relationship Specialty Start Date End Date Clem White MD [address] [place] [id number] PCP - General Internal Medicine 02/16/21 documented as of this encounter
--- OUTSIDE RECORDS SUMMARY | 2024-11-27 06:47 | XMS_ITS | Encounter Summary ---
Author Organization [employer] Address [address] 7[address] [place] [address] Care Team Providers Care Grain Ii Farmworker Name Role Phone Clem White MD Primary Care Prov ider Reason for Visit * Reason Onset Date Comments Results 11/24/2024 Encounter Details Date Type Department Care Team ([facility] Contact Info) Description 11/24/2024 Telephone [facility] [address] [place], [place] [phone] Evans Poole MD [address] [place] [address] Results Social History Tobacco Use Types Packs/Day [...] encounter Miscellaneous Notes * Telephone Encounter - Tiana Delgado RN - 11/24/2024 10:00 AM EDT TC to pt with [facility] science interpreter. Reviewed echo results per provider request. Pt states he hadrecent visit with cardiology. All questions answered. Advised if pt has additional questions to contact office. Pt verbalized understanding and agreement with plan. documented in this encounter Plan of Treatment Not on file documented as of this encounter Visit Diagnoses Not on filedocumented in this encounter Additional Health Concerns Assessment Noted Time PHQ-9 Depression Total Score: 1 07/27/19 24 9:44 AM EDT documented as of this encounter Care Teams Grain Ii Farmworker Relationship Specialty Start Date End Date Clem White MD [address] [place] [phone] PCP - General Internal Medicine 02/16/21 documented as of this encounter
--- OUTSIDE RECORDS SUMMARY | 2024-11-27 06:47 | XMS_ITS | Encounter Summary ---
Author Organization [employer] Address [address] [place] [address] Care Team Providers Care Filter Press Operator Name Role Phone Clem White MD Primary Care Prov ider Reason for Visit * Reason Onset Date Comments Referral 04/10/2023 Encounter Details Date Type Department Care Team ([facility] st Contact Info) Description 04/10/2023 Telephone [facility] MEDICINE [address] [place] [phone] Clem White MD [address] [place] [address] Referral Social History Tobacco Use Types Packs/Day [...] from pt requesting renewal on referral for [facility] on [address], [place] [address], sba underwriter does not see any previous referral for that location, please contact pt for clarifications. documented in this encounter Plan of Treatment Not on file documented as of this encounter Visit Diagnoses Not on filedocumented in this encounter Additional Health Concerns Assessment Noted Time PHQ-9 Depression Total Score: 0 04/10/19 23 9:36 AM EST documented as of this encounter Care Teams Filter Press Operator Relationship Specialty Start Date End Date Clem White MD [address] [place] [id number] PCP - General Internal Medicine 02/16/21 documented as of this encounter
--- OUTSIDE RECORDS SUMMARY | 2024-11-27 06:47 | XMS_ITS | Encounter Summary ---
Author Organization [employer] Address [address] [place] [address] Care Team Providers Care Sales Support Administrator Name Role Phone Clem White MD Primary Care Prov ider Encounter Details Date Type Department Care Team (Late st Contact Info) Description 04/10/2023 Telephone [facility] MEDICINE [address] [place] [address] Clem White MD [address] [place] [address] Social History Tobacco Use Types Packs/Day Years [...] as of this encounter Care Teams Sales Support Administrator Relationship Specialty Start Date End Date Clem White MD [address] [place] [phone] PCP - General Internal Medicine 02/16/21 documented as of this encounter
[2024-11-27] MEDS: iohexoL 350 MG/ML 100 ML INFUS..BTL IV (09:24)
[2024-11-27] MEDS: Barium Sulfate Oral (Vanilla) 450 ML ORAL.SUSP 900 ML PO (09:25)
== END 2024-11-27 06:45 | disposition home or self-care (01) ==
LOC: HO.CT 06:44
PROVIDERS: PCP Internal Medicine; Visit Provider Internal Medicine
DX: R10.32 Left lower quadrant pain (principal)
CPT/HCPCS: 74177; Q9967

== ENCOUNTER → 2024-11-27 06:45 | Outpatient (BNV) | payer MEDICAID, SELFPAY | PROVIDERS: PCP Internal Medicine; Visit Provider Radiology Diagnostic Radiology | DX: K40.90 Unilateral inguinal hernia, without obstruction or gangrene, not specified as recurrent (principal); K57.30 Diverticulosis of large intestine without perforation or abscess without bleeding | CPT/HCPCS: 74177 ==

== ENCOUNTER 2024-12-18 10:30 | Outpatient (REF) | payer MEDICAID, SELFPAY ==
[2024-12-18 16:09] LABS: PSA,Total (Free>4and<10) 2.78 ng/mL (0.00-4.00)
== END 2024-12-18 10:31 | disposition home or self-care (01) ==
LOC: HO.CHCLDS 10:30
PROVIDERS: Visit Provider Internal Medicine
DX: Z12.5 Encounter for screening for malignant neoplasm of prostate (principal)
CPT/HCPCS: 36415; 84153

== ENCOUNTER 2025-01-04 14:43 | Outpatient (AMB) | payer MEDICAID, SELFPAY ==
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
[2025-01-04 15:11] VITALS: BP 108/53; PULSE 51; BMI 37.8
== END 2025-01-04 15:33 | disposition home or self-care (01) ==
LOC: HO.HGS 14:44
PROVIDERS: PCP Internal Medicine; Visit Provider Surgery
DX: K42.9 Umbilical hernia without obstruction or gangrene (principal); K43.2 Incisional hernia without obstruction or gangrene
CPT/HCPCS: 99204

== ENCOUNTER → 2025-01-04 14:43 | Outpatient (BNVA) | payer MEDICAID, SELFPAY | PROVIDERS: PCP Internal Medicine; Visit Provider Surgery | DX: K42.9 Umbilical hernia without obstruction or gangrene (principal); K43.2 Incisional hernia without obstruction or gangrene | CPT/HCPCS: 99202 ==